=== PATIENT | male | born 1965 | race Caucasian/White ===

== ENCOUNTER 2018-04-25 23:52 | Emergency (ER) | END 2018-04-26 04:45 | disposition home or self-care (01) ==

== ENCOUNTER 2018-04-26 19:09 | Emergency (ER) | END 2018-04-26 20:43 | disposition home or self-care (01) ==

== ENCOUNTER 2019-04-06 03:34 | Inpatient (IN) | payer MEDICAID, OTHER ==
[~2019-04-06] VITALS: Ht 165.1 cm; Wt 70.0 kg
[2019-04-06] VITALS (11 sets, daily range): BP systolic 148–174; BP diastolic 88–100; PULSE 82–151; RESP 16–20; Ht 165.1 cm; Wt 70.0 kg
[~2019-04-06 03:34] MED LIST: ATOR-2 PO; BENA10TA4 PO; CHLO25CA9 PO; MTF1000T PO
[2019-04-06] MEDS ORDERED: MULTIVITAMINS 10 ML, THIAMINE 100 MG, FOLIC ACID 1 MG, MAGNESIUM SULFATE 2 GM in SOD CH... IV ONE (04:00)
[2019-04-06] MEDS ORDERED: ONDANSETRON 4 MG INJ IV PRN ×2 (04:00→05:30)
[2019-04-06] MEDS ORDERED: ACETAMINOPHEN 325 MG TAB PO PRN (04:00)
[2019-04-06] MEDS ORDERED: LEVETIRACETAM 1000 MG (PMX) 100 ML IVPB ONE (05:30)
[2019-04-06] MEDS ORDERED: LORAZEPAM 2 MG INJ IV PRN ×2 (05:30)
[2019-04-06] MEDS ORDERED: LORAZEPAM 2 MG INJ IV ONE ×2 (05:30)
[2019-04-06] MEDS ORDERED: NACL 0.9% 3 ML SYG IV SCH (05:30)
--- NOTE | 2019-04-06 05:41 | HP ---
Date/Time of Note Date/Time of Note DATE: 04/06/19 TIME: 05:29 Assessment/Plan VTE Prophylaxis SCD applied (from Nsg): Yes Pharmacological prophylaxis: NA/contraindicated Pharm contraindication: other (No anticoagulation for now until head CT is done) Assessment/Plan Assessment/Plan 1. Seizure: Patient just had a seizure shortly after admitted to telemetry unit -He was brought to the ER for hypoglycemia (27 on the field). Home medication listed only includes metformin for diabetes. After dextrose was given by EMS, blood sugar has been in the 400s and 300s range. We just did an Accu-Chek and blood glucose in the 300s. -He will be given Ativan as needed -Start Keppra -Banana bag alternating with IV fluid -Head CT -Frequent Accu-Cheks and neurochecks -Keep n.p.o. -Seizure precaution 2. Hypoglycemia: See #1 3. Type 2 diabetes: Patient on metformin at home -Check A1c -See above 4. Alcohol abuse: Monitor for withdrawal -Banana bag alternating with IV fluid -As needed Ativan -When patient more appropriate, Librium 5. Hypertension: IV antihypertensive as needed 6. Dyslipidemia: Hold statin for now 7. During the [employer], there was a splattering of blood and saliva that has probably has gotten into the eye of one of the nurses. We will check HIV and hep panel Result Diagram: 04/06/19 0338 04/06/19 0338 Results 24hrs Laboratory Tests Test 04/06/19 03:38 04/06/19 03:40 04/06/19 04:58 04/06/19 05:18 White Blood Count 7.0 # Red Blood Count 4.09 L Hemoglobin 12.1 L Hematocrit 36.0 L Mean Corpuscular 88.0 Volume Mean Corpuscular 29.6 Hemoglobin Mean Corpuscular 33.6 Hemoglobin Concent Red Cell 14.2 Distribution Width Platelet Count 57 #L Mean Platelet Volume 11.6 H Immature 0.400 Granulocytes % Neutrophils % 53.0 Lymphocytes % 33.7 Monocytes % 12.1 H Eosinophils % 0.1 Basophils % 0.7 Nucleated Red Blood 0.0 Cells % Immature 0.030 Granulocytes # Neutrophils # 3.7 Lymphocytes # 2.3 Monocytes # 0.8 Eosinophils # 0.0 Basophils # 0.1 Nucleated Red Blood 0.0 Cells # Sodium Level 134 L Potassium Level 3.5 Chloride Level 91 L Carbon Dioxide Level 19 L Anion Gap 24 H Blood Urea Nitrogen 13 Creatinine 0.55 L Est Glomerular > 60 Filtrat Rate mL/min Glucose Level 456 *H Calcium Level 9.7 Total Bilirubin 0.9 Direct Bilirubin 0.00 Indirect Bilirubin 0.9 Aspartate Amino 131 H Transf (AST/SGOT) Alanine 75 H Aminotransferase (AL T/SGPT) Alkaline Phosphatase 253 H Total Protein 8.6 H Albumin 4.8 Globulin 3.80 H Albumin/Globulin 1.26 Ratio Ethyl Alcohol Level < 10.0 H Bedside Glucose 417 *H 351 H 306 H HPI/ROS Admit Date/Time Admit Date/Time April 06, 2019 at 03:59 Hx of Present Illness Patient is a 53-year-old male with a history of hypertension, type 2 diabetes, dyslipidemia, alcohol abuse who was brought to the ER for hypoglycemia. On the field, blood glucose was 27 and was given dextrose. When he arrived to the ER, blood glucose in the 400s. Blood pressure 182/104. Patient has also been drinking. He has been admitted to the hospital and had multiple ER visits related to alcohol intoxication. Shortly after patient was admitted to telemetry unit, and [employer] was called for seizure. When I got to the room, his seizure has already stopped (lasted about 30 seconds). Currently patient is in a postictal state. While he was having a seizure, he pulled out his right forearm peripheral IV line which resulted in some bleeding. Because of his mentation, I am not able to gather additional information. PMH/Family/Social Past Medical History Medical History: diabetes, high cholesterol, hypertension Medications Current Medications Multivitamins 10 ml/Thiamine HCl 100 mg/Folic Acid 1 mg/Magnesium Sulfate 2 gm/ Sodium Chloride 1,000 ml @ 500 mls/hr Q2H ONCE IV Last administered on at 04:37; Admin Dose 500 MLS/HR; Start 04/06/19 at 04:00; Stop 04/06/19 at 05:59 Levetiracetam 100 ml @ 400 mls/hr ONCE ONCE IVPB ; Start 04/06/19 at 05:30; Stop 04/06/19 at 05:44 Lorazepam (Ativan) 1 mg ONCE ONCE IV Last administered on 04/06/19at 05:26; Admin Dose 1 MG; Start 04/06/19 at 05:30; Stop 04/06/19 at 05:31 Coded Allergies: No Known Allergy (Unverified , 04/26/18) Past Surgical History Past Surgical Hx: other (See HPI) Family History Significant Family History: diabetes Social History Alcohol Use: heavy Smoking Status: Unknown if ever smoked Drug Use: other (Unknown) Exam/Review of Systems Vital Signs Vitals Vital Signs Date Temp Pulse Resp B/P (MAP) Pulse Ox O2 O2 Flow FiO2 Time Delivery Rate 04/06/19 135 05:14 04/06/19 14 161/101 99 Room Air 04:30 (121) 04/06/19 98.4 03:35 Exam Constitutional: other (Patient altered (he just had a seizure). ) Head: normocephalic, atraumatic Eyes: PERRL Respiratory: clear to auscultation Cardiovascular: other (Tachycardic with regular rhythm) Gastrointestinal: soft Extremities: normal pulses LYNDA PIKE MD April 06, 2019 05:39
[2019-04-06] MEDS: SOD CHLORIDE 0.9% 1,000 ML IV SCH ×2 (05:44→14:37)
[2019-04-06] MEDS ORDERED: GLUCOSE GEL 15 GRAM TUBE PO PRN ×2 (06:00)
[2019-04-06] MEDS ORDERED: GLUCAGON 1 MG INJ IM PRN (06:00)
[2019-04-06] MEDS ORDERED: DEXTROSE 50% 50 ML SYRINGE IV PRN ×2 (06:00)
[2019-04-06] MEDS ORDERED: GLUCOSE GEL 15 GRAM TUBE BUCCAL PRN (06:00)
--- NOTE | 2019-04-06 06:35 | ERD ---
ER Documentation Chief Complaint Chief Complaint R89. HYPOGLYCEMIA FROM HOME. INS HPI This is a 53-year-old male with a past medical history of hypertension, hyperlipidemia, diabetes reportedly on metformin and glipizide, significant alcohol abuse who is presenting for hypoglycemia, possible seizure event and transient altered mentation. The patient was confused at his home. His family called an ambulance. Upon convict guard arrival, the patient's blood sugar was found to be in the 20s. The patient was also noted to have oral trauma, and there is suspicion that the patient may have had a seizure prior to convict guard arrival. It is unclear if the family witnessed a seizure or not. The patient was given D10 in route to the hospital with significant improvement of his mentation. The patient is currently alert and oriented x3. He does not recall all the events of today. The patient reports feeling a little fatigued and s haky. Otherwise, he does not endorse any significant complaints. He does report not drinking alcohol over the last few days. The patient denies fever or chills. The patient has had no headache or vision changes. The patient does not endorse neck or back pain. The patient denies lightheadedness or dizziness. The patient has had no chest pain or trouble breathing. The patient denies nausea or vomiting. The patient denies abdominal pain. The patient denies changes to bowel movements or urination. The patient has had no focal deficits. The patient has had no weakness or numbness or tingling to the face or extremities. ROS All systems reviewed and are negative except as per history of present illness. Medications Home Meds Active Scripts Chlordiazepoxide* (Chlordiazepoxide*) 25 Mg Capsule, 25 MG PO BID PRN for CONTROL WITHDRAWAL SYMPTOMS, #10 CAP Prov:BATOOL RAMOS MD 04/26/18 Reported Medications Atorvastatin* (Atorvastatin*) 80 Mg Tablet, 80 MG PO QHS, #30 TAB 04/26/18 Benazepril Hcl* (Benazepril Hcl*) 10 Mg Tablet, 10 MG PO DAILY, #30 TAB 04/26/18 Metformin* (Glucophage*) 1,000 Mg Tablet, 1000 MG PO WITH BREAKFAST, #30 TAB 04/26/18 Allergies Allergies: Coded Allergies: No Known Allergy (Unverified , 04/26/18) PMhx/Soc History of Surgery: No Anesthesia Reaction: No Hx Neurological Disorder: No Hx Respiratory Disorders: No Hx Cardiac Disorders: Yes (Hypertension, hyperlipidemia, diabetes) Hx Psychiatric Problems: No Hx Miscellaneous Medical Probl: No Hx Alcohol Use: Yes (3 beers a day ) Hx Substance Use: No Hx Tobacco Use: Yes Smoking Status: Unknown if ever smoked FmHx Family History: diabetes Physical Exam Vitals Vital Signs Date Temp Pulse Resp B/P (MAP) Pulse Ox O2 O2 Flow FiO2 Time Delivery Rate 04/06/19 101 20 182/104 98 Room Air 03:45 (130) 04/06/19 98.4 72 15 182/104 100 03:35 (130) Physical Exam Const: No apparent distress, well-developed, well-nourished Head: Normocephalic, Atraumatic Eyes: Normal Conjunctiva. Extraocular movements intact. Pupils equal, round and reactive to light ENT: Normal External Ears, Nose and Mouth. Abrasion to the anterior left lateral tongue. Neck: Full range of motion. No meningismus. Resp: Clear to auscultation bilaterally, No wheezes, rales or rhonchi Cardio: Regular rate and rhythm. No murmurs, rubs or gallops Abd: Soft, non tender, non distended. Normal bowel sounds Skin: No petechiae or rashes Back: No midline tenderness. No CVA tenderness Ext: No cyanosis, or edema Neur: Awake and alert, oriented 4. Cranial nerves intact. No facial droop. Normal strength, sensation and coordination. Tremulous Psych: Anxious Result Diagram: 04/06/19 0338 04/06/19 0338 Results 24 hrs Laboratory Tests Test 04/06/19 03:38 04/06/19 03:40 White Blood Count 7.0 10^3/ul Red Blood Count 4.09 10^6/ul Hemoglobin 12.1 g/dl Hematocrit 36.0 % Mean Corpuscular Volume 88.0 fl Mean Corpuscular Hemoglobin 29.6 pg Mean Corpuscular Hemoglobin Concent 33.6 g/dl Red Cell Distribution Width 14.2 % Platelet Count 57 10^3/UL Mean Platelet Volume 11.6 fl Immature Granulocytes % 0.400 % Neutrophils % 53.0 % Lymphocytes % 33.7 % Monocytes % 12.1 % Eosinophils % 0.1 % Basophils % 0.7 % Nucleated Red Blood Cells % 0.0 /100WBC Immature Granulocytes # 0.030 10^3/ul Neutrophils # 3.7 10^3/ul Lymphocytes # 2.3 10^3/ul Monocytes # 0.8 10^3/ul Eosinophils # 0.0 10^3/ul Basophils # 0.1 10^3/ul Nucleated Red Blood Cells # 0.0 10^3/ul Sodium Level 134 mmol/L Potassium Level 3.5 mmol/L Chloride Level 91 mmol/L Carbon Dioxide Level 19 mmol/L Anion Gap 24 Blood Urea Nitrogen 13 mg/dl Creatinine 0.55 mg/dl Est Glomerular Filtrat Rate mL/min > 60 mL/min Glucose Level 456 mg/dl Calcium Level 9.7 mg/dl Total Bilirubin 0.9 mg/dl Direct Bilirubin 0.00 mg/dl Indirect Bilirubin 0.9 mg/dl Aspartate Amino Transf (AST/SGOT) 131 IU/L Alanine Aminotransferase (ALT/SGPT) 75 IU/L Alkaline Phosphatase 253 IU/L Total Protein 8.6 g/dl Albumin 4.8 g/dl Globulin 3.80 g/dl Albumin/Globulin Ratio 1.26 Ethyl Alcohol Level < 10.0 mg/dl Bedside Glucose 417 mg/dL Procedures/MDM MDM The patient's presentation warrants further investigation. Previous medical records, if available, were reviewed. LABS The patient's laboratory testing was obtained and reviewed. No emergent treatment was required unless described below. CBC: Mild normocytic anemia, not emergent. Significant thrombocytopenia, likely from alcoholic liver disease. No E/o systemic infection Chemistry: Mild hyponatremia, nonemergent. Hyperglycemia now after receiving D10. Anion gap metabolic acidosis, likely from a seizure event, low clinical suspicion for DKA. Transaminitis in a pattern consistent with alcoholic liver disease. No E/o severe alkalosis or renal failure Urine: No E/o acute infection or hematuria Tox: No E/o alcohol abuse. TREATMENT/DISPOSITION The patient presents for multiple complaints. The patient's initial presentation was concerning for significant hypoglycemia and a seizure event. The patient does have diabetes and reports being on metformin and glipizide. If he is in fact on glipizide, this could lead to refractory hypoglycemia, and I do feel that the patient requires further assessment and management in the hospital. The patient already received D10 prior to arrival. His sugar is now elevated. I do not believe he requires a dextrose infusion at this time. With respect to the patient's seizure, this could be related to his hypoglycemic event. The patient also has a history of severe alcohol abuse and reports not drinking over the last several days. There are some clinical findings concerning for possible alcoholic withdrawal, and there is a possibility of an alcohol withdrawal seizure. The patient was started on a banana bag in the emergency department. The patient did not have any subsequent episodes in the emergency department. The patient seemed to be resting comfortably. I did not feel that he required any benzodiazepine or antiepileptic medications in the ER. There is sequelae of liver disease, including thrombocytopenia, hyponatremia, transaminitis, which may be further assessed in the hospital. I do not see evidence of obstructive cholestatic disease. There are no electrolyte emergencies at this time. ADMISSION At this time, I feel that the patient requires admission for further evaluation and management. The patient will be admitted to panel in accordance with the patient's insurance. The patient was accepted by Dr. Dominguez at 3:58 AM on April 06, 2019. Disclaimer: Inadvertent spelling and grammatical errors are likely due to EHR/dictation software use and do not reflect on the overall quality of patient care. Note that the electronic time recorded on this note does not necessarily reflect the actual time of the patient encounter. Departure Diagnosis: Primary Impression: Hypoglycemia Additional Impressions: Seizure disorder Alcohol withdrawal Complication of substance-induced condition: with unspecified complication Qualified Codes: F10.239 - Alcohol dependence with withdrawal, unspecified Alcoholic liver disease Normocytic anemia Thrombocytopenia Hyponatremia High anion gap metabolic acidosis Transaminitis Condition: Serious ANNIE FAULKNER MD April 06, 2019 06:26
[2019-04-06] MEDS ORDERED: ACETAMINOPHEN 500 MG TAB PO PRN (09:00)
[2019-04-06] MEDS ORDERED: INSULIN ASPART [NOVOLOG] 3 ML PEN SC SCH (09:00)
[2019-04-06] MEDS: HEPARIN 5,000 UNIT/1 ML VIAL SC SCH ×2 (10:24→20:11)
--- NOTE | 2019-04-06 11:31 | PN ---
Date/Time of Note Date/Time of Note DATE: 04/06/19 TIME: 11:29 Assessment/Plan VTE Prophylaxis SCD applied (from Nsg): Yes Pharmacological prophylaxis: heparin Lines/Catheters IV Catheter Type (from Nrsg): Peripheral IV Assessment/Plan Hospital Course SUBJECTIVE: Patient remains on bilateral soft wrist restraints. Remains tremulous. OBJECTIVE: Physical Exam General: Adequately build 53 year-old male lying in bed in no apparent distress. HEENT: Normocephalic, atraumatic. Eyes: Anicteric sclerae, conjunctivae clear. ENT: Nasal septum midline, oral mucosa moist. Neck supple, no JVD noticed. Respiratory: Bilaterally clear breath sounds. No use of accessory muscles of respiration. No adventitious breath sounds. Cardiovascular: S1, S2 heard. Regular rate and rhythm. Abdomen: Soft, nontender, and nondistended. Bowel sounds positive in all 4 quadrants. Genitourinary: Deferred. Extremities: No cyanosis, no clubbing, no edema. Peripheral pulses palpable. Neurologic: The patient is awake, alert, and oriented. Skin: Normal skin turgor. No skin rashes. Labs & Vitals per chart ASSESSMENT & PLAN 52-year-old male with comorbidities including diabetes mellitus type 2, hypertension, dyslipidemia, and alcohol abuse who was brought in by paramedics from home for hypoglycemia. Patient was admitted to telemetry floor and the patient had a seizure in the telemetry floor. 1. Acute encephalopathy. -Most probably secondary to underlying hypoglycemia. -Currently the sugars are elevated. -Pending brain CT scan. 2. Seizures. -Most probably alcohol withdrawal seizure. -Pending brain CT scan. -Continue seizure precautions. -PRN Ativan for any seizures. 3. Alcohol withdrawal. -Continue tapering dose Librium. -Continue PRN IV Ativan. 4. Diabetes mellitus type 2. -Start the patient on sliding scale insulin along with pre-meal insulin and basal insulin. -Obtain hemoglobin A1c. 5. Transaminitis without hyperbilirubinemia. -Most probably secondary to underlying alcoholism. -Hepatitis panel negative. -Hold statins. 6. Dyslipidemia. -Low-cholesterol diet. -Hold statins because of underlying transaminitis. 7. Hypertension. -Resume antihypertensives. 8. Fluids, electrolytes, and nutrition. -Carbohydrate controlled diet. 9. DVT prophylaxis. -SQ heparin. 10. Plan. -Continue tapering dose of Librium -Monitor for any seizures. -Await brain CT scan. The patient was seen in collaboration with Dr. Gil. Result Diagram: 04/06/19 0338 04/06/19 0338 Results 24hrs Laboratory Tests Test 04/06/19 03:38 04/06/19 03:40 04/06/19 04:45 04/06/19 04:58 White Blood Count 7.0 # Red Blood Count 4.09 L Hemoglobin 12.1 L Hematocrit 36.0 L Mean Corpuscular 88.0 Volume Mean Corpuscular 29.6 Hemoglobin Mean Corpuscular 33.6 Hemoglobin Concent Red Cell 14.2 Distribution Width Platelet Count 57 #L Mean Platelet Volume 11.6 H Immature 0.400 Granulocytes % Neutrophils % 53.0 Lymphocytes % 33.7 Monocytes % 12.1 H Eosinophils % 0.1 Basophils % 0.7 Nucleated Red Blood 0.0 Cells % Immature 0.030 Granulocytes # Neutrophils # 3.7 Lymphocytes # 2.3 Monocytes # 0.8 Eosinophils # 0.0 Basophils # 0.1 Nucleated Red Blood 0.0 Cells # Sodium Level 134 L Potassium Level 3.5 Chloride Level 91 L Carbon Dioxide Level 19 L Anion Gap 24 H Blood Urea Nitrogen 13 Creatinine 0.55 L Est Glomerular > 60 Filtrat Rate mL/min Glucose Level 456 *H Calcium Level 9.7 Total Bilirubin 0.9 Direct Bilirubin 0.00 Indirect Bilirubin 0.9 Aspartate Amino 131 H Transf (AST/SGOT) Alanine 75 H Aminotransferase (AL T/SGPT) Alkaline Phosphatase 253 H Total Protein 8.6 H Albumin 4.8 Globulin 3.80 H Albumin/Globulin 1.26 Ratio Ethyl Alcohol Level < 10.0 H Bedside Glucose 417 *H 351 H Urine Color STRAW Urine Clarity CLEAR Urine pH 6.0 Urine Specific 1.020 [place] Urine Ketones 1+ H Urine Nitrite NEGATIVE Urine Bilirubin NEGATIVE Urine Urobilinogen NEGATIVE Urine Leukocyte NEGATIVE Esterase Urine Microscopic 3 RBC Urine Microscopic 1 WBC Urine Hemoglobin 1+ H Urine Glucose 3+ H Urine Total Protein 2+ H Test 04/06/19 05:18 04/06/19 05:52 04/06/19 10:16 Bedside Glucose 306 H 227 H Hepatitis B Surface NEGATIVE Antigen Hepatitis B Surface NEGATIVE Antibody Hepatitis C Antibody NEGATIVE HIV (1&2) Antibody NEGATIVE Exam/Review of Systems Exam Vitals Vital Signs Date Temp Pulse Resp B/P (MAP) Pulse Ox O2 O2 Flow FiO2 Time Delivery Rate 04/06/19 99.6 10:14 04/06/19 88 18 148/94 100 Nasal 10:10 (112) Cannula 04/06/19 2.0 05:56 Results Results 24hrs Laboratory Tests Test 04/06/19 03:38 04/06/19 03:40 04/06/19 04:45 04/06/19 04:58 White Blood Count 7.0 # Red Blood Count 4.09 L Hemoglobin 12.1 L Hematocrit 36.0 L Mean Corpuscular 88.0 Volume Mean Corpuscular 29.6 Hemoglobin Mean Corpuscular 33.6 Hemoglobin Concent Red Cell 14.2 Distribution Width Platelet Count 57 #L Mean Platelet Volume 11.6 H Immature 0.400 Granulocytes % Neutrophils % 53.0 Lymphocytes % 33.7 Monocytes % 12.1 H Eosinophils % 0.1 Basophils % 0.7 Nucleated Red Blood 0.0 Cells % Immature 0.030 Granulocytes # Neutrophils # 3.7 Lymphocytes # 2.3 Monocytes # 0.8 Eosinophils # 0.0 Basophils # 0.1 Nucleated Red Blood 0.0 Cells # Sodium Level 134 L Potassium Level 3.5 Chloride Level 91 L Carbon Dioxide Level 19 L Anion Gap 24 H Blood Urea Nitrogen 13 Creatinine 0.55 L Est Glomerular > 60 Filtrat Rate mL/min Glucose Level 456 *H Calcium Level 9.7 Total Bilirubin 0.9 Direct Bilirubin 0.00 Indirect Bilirubin 0.9 Aspartate Amino 131 H Transf (AST/SGOT) Alanine 75 H Aminotransferase (AL T/SGPT) Alkaline Phosphatase 253 H Total Protein 8.6 H Albumin 4.8 Globulin 3.80 H Albumin/Globulin 1.26 Ratio Ethyl Alcohol Level < 10.0 H Bedside Glucose 417 *H 351 H Urine Color STRAW Urine Clarity CLEAR Urine pH 6.0 Urine Specific 1.020 [place] Urine Ketones 1+ H Urine Nitrite NEGATIVE Urine Bilirubin NEGATIVE Urine Urobilinogen NEGATIVE Urine Leukocyte NEGATIVE Esterase Urine Microscopic 3 RBC Urine Microscopic 1 WBC Urine Hemoglobin 1+ H Urine Glucose 3+ H Urine Total Protein 2+ H Test 04/06/19 05:18 04/06/19 05:52 04/06/19 10:16 Bedside Glucose 306 H 227 H Hepatitis B Surface NEGATIVE Antigen Hepatitis B Surface NEGATIVE Antibody Hepatitis C Antibody NEGATIVE HIV (1&2) Antibody NEGATIVE Medications Medication Current Medications Sodium Chloride 1,000 ml @ 125 mls/hr Q8H IV Last administered on 04/06/19at 05:44; Admin Dose 125 MLS/HR; Start 04/06/19 at 05:25 IV Flush (NS 3 ml) 3 ml PER PROTOCOL IV ; Start 04/06/19 at 05:30 Lorazepam (Ativan) 2 mg Q10M PRN IV seizure; Start 04/06/19 at 05:30 Ondansetron HCl (Zofran Inj) 4 mg Q6H PRN IV NAUSEA/VOMITING; Start 04/06/19 at 05:30 Heparin Sodium (Porcine) (Heparin (5000 Units/1ml)) 5,000 unit Q12 SC Last administered on 04/06/19at 10:24; Admin Dose 5,000 UNIT; Start 04/06/19 at 09:00 Diagnostic Test (Pha) (Accu-Chek) 1 ea 02 XX ; Start 04/07/19 at 02:00 Insulin Aspart (Novolog Insulin Pen) NOVOLOG *MILD* ALGORI... Q4 SC Last administered on 04/06/19at 10:24; Admin Dose 3 UNIT; Start 04/06/19 at 09:00 Lorazepam (Ativan) 1 mg Q6H PRN IV anxiety; Start 04/06/19 at 05:30 Multivitamins 10 ml/Thiamine HCl 100 mg/Folic Acid 1 mg/Sodium Chloride 1,011.2 ml @ 125 mls/ hr DAILY@09 IVPB ; Start 04/07/19 at 09:00; Stop 04/10/19 at 17:06 Miscellaneous Information 1 ea NOTE XX ; Start 04/06/19 at 06:00 Glucose (Glutose) 15 gm Q15M PRN PO DECREASED GLUCOSE; Start 04/06/19 at 06:00 Glucose (Glutose) 22.5 gm Q15M PRN PO DECREASED GLUCOSE; Start 04/06/19 at 06:00 Dextrose (D50w Syringe) 25 ml Q15M PRN IV DECREASED GLUCOSE; Start 04/06/19 at 06:00 Dextrose (D50w Syringe) 50 ml Q15M PRN IV DECREASED GLUCOSE; Start 04/06/19 at 06:00 Glucagon (Glucagen) 1 mg Q15M PRN IM DECREASED GLUCOSE; Start 04/06/19 at 06:00 Glucose (Glutose) 15 gm Q15M PRN BUCCAL DECREASED GLUCOSE; Start 04/06/19 at 06:00 Acetaminophen (Tylenol Tab) 500 mg Q6H PRN PO MILD PAIN(1-3)OR ELEVATED TEMP Last administered on 04/06/19at 10:14; Admin Dose 500 MG; Start 04/06/19 at 09:00 Hydralazine HCl (Apresoline) 10 mg Q6H PRN IV SBP>160; Start 04/06/19 at 09:00 Benazepril HCl (Lotensin) 10 mg DAILY PO ; Start 04/07/19 at 09:00 Chlordiazepoxide (Librium) 25 mg TID PO ; Start 04/06/19 at 13:00 AIME DUARTE NP April 06, 2019 11:31
[2019-04-06] MEDS: INSULIN ASPART [NOVOLOG] 3 ML PEN SC SCH ×5 (12:05→20:16)
[2019-04-06] MEDS: CHLORDIAZEPOXIDE 25 MG CAP PO SCH ×2 (12:10→20:10)
[2019-04-06] MEDS: INSULIN GLARGINE [LANTus] (100 UNITS/ML) SYG SC SCH (20:08)
[2019-04-07] VITALS (17 sets, daily range): BP systolic 106–169; BP diastolic 65–114; PULSE 81–140; RESP 18–21
[2019-04-07] MEDS: SOD CHLORIDE 0.9% 1,000 ML IV SCH ×4 (00:14→13:25)
[2019-04-07] MEDS: ACCU-CHEK XX SCH (01:50)
[2019-04-07] MEDS ORDERED: LORAZEPAM 2 MG INJ IV PRN (03:30)
[2019-04-07] MEDS: hydrALAzine 20 MG INJ IV PRN (05:08)
[2019-04-07] MEDS ORDERED: POTASSIUM CHLORIDE (SR) 20 MEQ TAB PO ONE (07:00)
[2019-04-07] MEDS: LORAZEPAM 2 MG INJ IV PRN ×5 (07:58→22:20)
[2019-04-07] MEDS ORDERED: HALOPERIDOL 5 MG INJ IV ONE (08:30)
[2019-04-07] MEDS ORDERED: METOPROLOL 5 MG INJ IV PRN (08:30)
[2019-04-07] MEDS ORDERED: MAGNESIUM SULFATE 4 GM/100 ML 100 ML IVPB ONE (08:30)
[2019-04-07] MEDS: CHLORDIAZEPOXIDE 25 MG CAP PO SCH ×3 (08:50→20:17)
[2019-04-07] MEDS: HEPARIN 5,000 UNIT/1 ML VIAL SC SCH ×2 (08:51→20:25)
[2019-04-07] MEDS: INSULIN ASPART [NOVOLOG] 3 ML PEN SC SCH ×7 (08:52→20:30)
[2019-04-07] MEDS: BENAZEPRIL 10 MG TAB PO SCH (08:53)
[2019-04-07] MEDS ORDERED: MAGNESIUM SULFATE 3 GM in SOD CHLORIDE 0.9% 100 ML IVPB ONE (09:00)
--- NOTE | 2019-04-07 09:48 | PN ---
Date/Time of Note Date/Time of Note DATE: 04/07/19 TIME: 09:44 Assessment/Plan VTE Prophylaxis Risk score (from Ns)>0 risk: 3 SCD applied (from Ns): Yes Pharmacological prophylaxis: heparin Lines/Catheters IV [facility]ter [facility] (from [facility]): Peripheral IV Urinary Cath still in place: No Assessment/Plan Hospital Course SUBJECTIVE: Patient remains on bilateral soft wrist restraints. Remains tremulous and confused. OBJECTIVE: Physical Exam General: Adequately build 53 year-old male lying in bed in no apparent distress, very restless. HEENT: Normocephalic, atraumatic. Eyes: Anicteric sclerae, conjunctivae clear. ENT: Nasal septum midline, oral mucosa moist. Neck supple, no JVD noticed. Respiratory: Bilaterally clear breath sounds. No use of accessory muscles of respiration. No adventitious breath sounds. Cardiovascular: S1, S2 heard. Regular rate and rhythm. Abdomen: Soft, nontender, and nondistended. Bowel sounds positive in all 4 quadrants. Genitourinary: Deferred. Extremities: No cyanosis, no clubbing, no edema. Peripheral pulses palpable. Neurologic: The patient is awake. Confused. Skin: Normal skin turgor. No skin rashes. Labs & Vitals per chart ASSESSMENT & PLAN 52-year-old male with comorbidities including diabetes mellitus type 2, hypertension, dyslipidemia, and alcohol abuse who was brought in by paramedics from home for hypoglycemia. Patient was admitted to telemetry floor and the patient had a seizure in the telemetry floor. 1. Acute encephalopathy. -Most probably secondary to underlying hypoglycemia. -Currently the sugars are elevated. -Brain CT scan negative. 2. Seizures. -Most probably alcohol withdrawal seizure. -Brain CT scan negative. -Continue seizure precautions. -PRN Ativan for any seizures. 3. Alcohol withdrawal. -Continue tapering dose Librium. -Continue PRN IV Ativan. 4. Diabetes mellitus type 2. -Continue the patient on sliding scale insulin along with pre-meal insulin and basal insulin. -Hemoglobin A1c 12.1. 5. Transaminitis without hyperbilirubinemia. -Most probably secondary to underlying alcoholism. -Hepatitis panel negative. -Hold statins. 6. Dyslipidemia. -Low-cholesterol diet. -Hold statins because of underlying transaminitis. -Start omega-3 fatty acids. 7. Hypertension. -Continue antihypertensives. 8. Fluids, electrolytes, and nutrition. -Carbohydrate controlled diet. 9. DVT prophylaxis. -SQ heparin. 10. Plan. -Continue tapering dose of Librium -Monitor for any seizures. -Replete electrolytes. -Add beta blockers. -Await clinical improvement. The patient was seen in collaboration with Dr. Gil. Result Diagram: 04/07/1912 04/07/19 0512 Results 24hrs Laboratory Tests Test 04/06/19 10:16 04/06/19 12:01 04/06/19 12:17 04/06/19 17:37 Bedside Glucose 227 H 158 227 H Sodium Level 135 Potassium Level 3.1 L Chloride Level 98 Carbon Dioxide Level 28 Anion Gap 9 # Blood Urea Nitrogen 13 Creatinine 0.51 L Est Glomerular > 60 Filtrat Rate mL/min Glucose Level 166 # Calcium Level 8.7 Magnesium Level 1.1 L Total Bilirubin 0.8 Direct Bilirubin 0.00 Indirect Bilirubin 0.8 Aspartate Amino 111 H Transf (AST/SGOT) Alanine 65 Aminotransferase (AL T/SGPT) Alkaline Phosphatase 178 H Total Protein 7.7 Albumin 4.1 Globulin 3.60 H Albumin/Globulin 1.13 Ratio Test 04/06/19 20:01 04/07/19 01:49 04/07/19 05:12 04/07/19 08:08 Bedside Glucose 196 213 172 White Blood Count 5.9 Red Blood Count 3.94 L Hemoglobin 11.8 L Hematocrit 33.6 L Mean Corpuscular 85.3 Volume Mean Corpuscular 29.9 Hemoglobin Mean Corpuscular 35.1 Hemoglobin Concent Red Cell 13.7 Distribution Width Platelet Count 67 L Mean Platelet Volume 10.8 H Immature 0.700 H Granulocytes % Neutrophils % 59.0 Lymphocytes % 24.7 Monocytes % 13.6 H Eosinophils % 1.0 Basophils % 1.0 Nucleated Red Blood 0.0 Cells % Immature 0.040 H Granulocytes # Neutrophils # 3.5 Lymphocytes # 1.5 Monocytes # 0.8 Eosinophils # 0.1 Basophils # 0.1 Nucleated Red Blood 0.0 Cells # Sodium Level 136 Potassium Level 2.8 *L Chloride Level 100 Carbon Dioxide Level 27 Anion Gap 9 Blood Urea Nitrogen 11 Creatinine 0.50 L Est Glomerular > 60 Filtrat Rate mL/min Glucose Level 142 Hemoglobin A1c 12.1 H Calcium Level 8.4 Magnesium Level 1.0 L Total Bilirubin 0.9 Direct Bilirubin 0.00 Indirect Bilirubin 0.9 Aspartate Amino 124 H Transf (AST/SGOT) Alanine 66 Aminotransferase (AL T/SGPT) Alkaline Phosphatase 151 H Total Protein 7.5 Albumin 4.1 Globulin 3.40 H Albumin/Globulin 1.20 Ratio Triglycerides Level 110 Cholesterol Level 308 H LDL Cholesterol, 134 Calculated HDL Cholesterol 152 H Cholesterol/HDL 2.0 Ratio Exam/Review of Systems Exam Vitals Vital Signs Date Temp Pulse Resp B/P (MAP) Pulse Ox O2 O2 Flow FiO2 Time Delivery Rate 04/07/19 127 08:17 04/07/19 98.6 20 151/99 100 Nasal 07:41 (116) Cannula 04/07/19 3.0 07:27 Intake and Output 04/06/19 04/06/19 04/07/19 1515:00 23:00 07:00 IntakeIntake Total 900 ml 520 ml OutputOutput Total 2600 ml 800 ml BalanceBalance -1700 ml -280 ml Results Results 24hrs Laboratory Tests Test 04/06/19 10:16 04/06/19 12:01 04/06/19 12:17 04/06/19 17:37 Bedside Glucose 227 H 158 227 H Sodium Level 135 Potassium Level 3.1 L Chloride Level 98 Carbon Dioxide Level 28 Anion Gap 9 # Blood Urea Nitrogen 13 Creatinine 0.51 L Est Glomerular > 60 Filtrat Rate mL/min Glucose Level 166 # Calcium Level 8.7 Magnesium Level 1.1 L Total Bilirubin 0.8 Direct Bilirubin 0.00 Indirect Bilirubin 0.8 Aspartate Amino 111 H Transf (AST/SGOT) Alanine 65 Aminotransferase (AL T/SGPT) Alkaline Phosphatase 178 H Total Protein 7.7 Albumin 4.1 Globulin 3.60 H Albumin/Globulin 1.13 Ratio Test 04/06/19 20:01 04/07/19 01:49 04/07/19 05:12 04/07/19 08:08 Bedside Glucose 196 213 172 White Blood Count 5.9 Red Blood Count 3.94 L Hemoglobin 11.8 L Hematocrit 33.6 L Mean Corpuscular 85.3 Volume Mean Corpuscular 29.9 Hemoglobin Mean Corpuscular 35.1 Hemoglobin Concent Red Cell 13.7 Distribution Width Platelet Count 67 L Mean Platelet Volume 10.8 H Immature 0.700 H Granulocytes % Neutrophils % 59.0 Lymphocytes % 24.7 Monocytes % 13.6 H Eosinophils % 1.0 Basophils % 1.0 Nucleated Red Blood 0.0 Cells % Immature 0.040 H Granulocytes # Neutrophils # 3.5 Lymphocytes # 1.5 Monocytes # 0.8 Eosinophils # 0.1 Basophils # 0.1 Nucleated Red Blood 0.0 Cells # Sodium Level 136 Potassium Level 2.8 *L Chloride Level 100 Carbon Dioxide Level 27 Anion Gap 9 Blood Urea Nitrogen 11 Creatinine 0.50 L Est Glomerular > 60 Filtrat Rate mL/min Glucose Level 142 Hemoglobin A1c 12.1 H Calcium Level 8.4 Magnesium Level 1.0 L Total Bilirubin 0.9 Direct Bilirubin 0.00 Indirect Bilirubin 0.9 Aspartate Amino 124 H Transf (AST/SGOT) Alanine 66 Aminotransferase (AL T/SGPT) Alkaline Phosphatase 151 H Total Protein 7.5 Albumin 4.1 Globulin 3.40 H Albumin/Globulin 1.20 Ratio Triglycerides Level 110 Cholesterol Level 308 H LDL Cholesterol, 134 Calculated HDL Cholesterol 152 H Cholesterol/HDL 2.0 Ratio Medications Medication Current Medications Sodium Chloride 1,000 ml @ 125 mls/hr Q8H IV Last administered on 04/07/19at 00:14; Admin Dose 125 MLS/HR; Start 04/06/19 at 05:25 IV Flush (NS 3 ml) 3 ml PER PROTOCOL IV ; Start 04/06/19 at 05:30 Lorazepam (Ativan) 2 mg Q10M PRN IV seizure Last administered on 04/07/19at 03:19; Admin Dose 2 MG; Start 04/06/19 at 05:30 Ondansetron HCl (Zofran Inj) 4 mg Q6H PRN IV NAUSEA/VOMITING; Start 04/06/19 at 05:30 Heparin Sodium (Porcine) (Heparin (5000 Units/1ml)) 5,000 unit Q12 SC Last administered on 04/07/19at 08:51; Admin Dose 5,000 UNIT; Start 04/06/19 at 09:00 Diagnostic Test (Pha) (Accu-Chek) 1 ea 02 XX Last administered on 04/07/19at 01:50; Admin Dose 1 EA; Start 04/07/19 at 02:00 Multivitamins 10 ml/Thiamine HCl 100 mg/Folic Acid 1 mg/Sodium Chloride 1,011.2 ml @ 125 mls/ hr DAILY@09 IVPB ; Start 04/07/19 at 09:00; Stop 04/10/19 at 17:06 Miscellaneous Information 1 ea NOTE XX ; Start 04/06/19 at 06:00 Glucose (Glutose) 15 gm Q15M PRN PO DECREASED GLUCOSE; Start 04/06/19 at 06:00 Glucose (Glutose) 22.5 gm Q15M PRN PO DECREASED GLUCOSE; Start 04/06/19 at 06:00 Dextrose (D50w Syringe) 25 ml Q15M PRN IV DECREASED GLUCOSE; Start 04/06/19 at 06:00 Dextrose (D50w Syringe) 50 ml Q15M PRN IV DECREASED GLUCOSE; Start 04/06/19 at 06:00 Glucagon (Glucagen) 1 mg Q15M PRN IM DECREASED GLUCOSE; Start 04/06/19 at 06:00 Glucose (Glutose) 15 gm Q15M PRN BUCCAL DECREASED GLUCOSE; Start 04/06/19 at 06:00 Acetaminophen (Tylenol Tab) 500 mg Q6H PRN PO MILD PAIN(1-3)OR ELEVATED TEMP Last administered on 04/06/19at 10:14; Admin Dose 500 MG; Start 04/06/19 at 09:00 Hydralazine HCl (Apresoline) 10 mg Q6H PRN IV SBP>160 Last administered on at 05:08; Admin Dose 10 MG; Start 04/06/19 at 09:00 Benazepril HCl (Lotensin) 10 mg DAILY PO Last administered on 04/07/19at 08:53; Admin Dose 10 MG; Start 04/07/19 at 09:00 Chlordiazepoxide (Librium) 25 mg TID PO Last administered on 04/07/19at 08:50; Admin Dose 25 MG; Start 04/06/19 at 13:00 Insulin Glargine (Lantus) 11 units DAILY@2000 SC Last administered on 04/06/19at 20:08; Admin Dose 11 UNITS; Start 04/06/19 at 20:00 Insulin Aspart (Novolog Insulin Pen) 4 unit WITH MEALS SC Last administered on 04/07/19at 08:52; Admin Dose 4 UNIT; Start 04/06/19 at 12:00 Insulin Aspart (Novolog Insulin Pen) NOVOLOG *MILD* ALGORITHM WITH MEALS BEDTIME SC Last administered on 04/07/19at 08:53; Admin Dose 1 UNIT; Start 04/06/19 at 12:00 Lorazepam (Ativan) 1 mg Q2H PRN IV anxiety; Start 04/07/19 at 03:30 Lorazepam (Ativan) 2 mg Q2H PRN IV SEVERE AGITATION Last administered on 04/07/19at 07:58; Admin Dose 2 MG; Start 04/07/19 at 03:30 Magnesium Sulfate 3 gm/Sodium Chloride 106 ml @ 35.333 mls/ hr ONCE ONCE IVPB ; Start 04/07/19 at 09:00; Stop 04/07/19 at 11:59 Metoprolol Tartrate (Lopressor) 2.5 mg Q6H PRN IV HR>130; Start 04/07/19 at 08:30 AIME DUARTE NP April 07, 2019 09:48
[2019-04-07] MEDS: METOPROLOL 25 MG TAB PO SCH ×2 (10:14→20:18)
[2019-04-07] MEDS ORDERED: LORAZEPAM 2 MG INJ IV ONE (11:00)
[2019-04-07] MEDS: MULTIVITAMINS 10 ML, THIAMINE 100 MG, FOLIC ACID 1 MG in SOD CHLORIDE 0.9% 1,000 ML IVPB SCH (13:42)
[2019-04-07] MEDS: POTASSIUM CHLORIDE 50 ML IVPB SCH ×3 (20:19→23:11)
[2019-04-07] MEDS: INSULIN GLARGINE [LANTus] (100 UNITS/ML) SYG SC SCH (20:23)
[2019-04-07] MEDS ORDERED: HALOPERIDOL 5 MG INJ IM ONE (23:00)
[2019-04-08] VITALS (12 sets, daily range): BP systolic 137–156; BP diastolic 85–104; PULSE 82–130; RESP 18–20
[2019-04-08] MEDS: LORAZEPAM 2 MG INJ IV PRN ×2 (00:25→03:28)
[2019-04-08] MEDS: ACCU-CHEK XX SCH (02:07)
[2019-04-08] MEDS: SOD CHLORIDE 0.9% 1,000 ML IV SCH ×7 (02:08→21:25)
[2019-04-08] MEDS: INSULIN ASPART [NOVOLOG] 3 ML PEN SC SCH ×7 (07:37→20:44)
[2019-04-08] MEDS: BENAZEPRIL 10 MG TAB PO SCH (08:48)
[2019-04-08] MEDS: CHLORDIAZEPOXIDE 25 MG CAP PO SCH ×4 (08:48→20:37)
[2019-04-08] MEDS: METOPROLOL 25 MG TAB PO SCH ×2 (08:48→20:38)
[2019-04-08] MEDS: MULTIVITAMINS 10 ML, THIAMINE 100 MG, FOLIC ACID 1 MG in SOD CHLORIDE 0.9% 1,000 ML IVPB SCH (08:54)
--- NOTE | 2019-04-08 08:58 | RADRPT ---
Vent Rate: 131 bpm RR Interval: 456 msec SD Interval: 124 msec QRS Duration: 107 msec QT Interval: 355 msec QTC Interval: 526 msec P-R-T Boyle: 0 - 199 - 57 degrees Sinus tachycardia with PVC Prolonged QT interval...QTc >500mS ABNORMAL ECG Electronically Signed By: Abhijeet Franz
[2019-04-08] MEDS: HEPARIN 5,000 UNIT/1 ML VIAL SC SCH ×2 (09:18→20:39)
--- NOTE | 2019-04-08 09:40 | PN ---
Date/Time of Note Date/Time of Note DATE: 04/08/19 TIME: 09:38 Assessment/Plan VTE Prophylaxis Risk score (from Ns)>0 risk: 6 SCD applied (from Ns): Yes Pharmacological prophylaxis: heparin Lines/Catheters IV Catheter Type (from [facility]): Peripheral IV Urinary Cath still in place: No Assessment/Plan Hospital Course SUBJECTIVE: Patient remains on bilateral soft wrist restraints. Remains tremulous and confused. Has a 1:1 injury/safety hazard assessment. OBJECTIVE: Physical Exam General: Adequately build 53 year-old male lying in bed in no apparent distress, very restless. HEENT: Normocephalic, atraumatic. Eyes: Anicteric sclerae, conjunctivae clear. ENT: Nasal septum midline, oral mucosa moist. Neck supple, no JVD noticed. Respiratory: Bilaterally clear breath sounds. No use of accessory muscles of respiration. No adventitious breath sounds. Cardiovascular: S1, S2 heard. Regular rate and rhythm. Abdomen: Soft, nontender, and nondistended. Bowel sounds positive in all 4 quadrants. Genitourinary: Deferred. Extremities: No cyanosis, no clubbing, no edema. Peripheral pulses palpable. Neurologic: The patient is somnolent. Skin: Normal skin turgor. No skin rashes. Labs & Vitals per chart ASSESSMENT & PLAN 52-year-old male with comorbidities including diabetes mellitus type 2, hypertension, dyslipidemia, and alcohol abuse who was brought in by paramedics from home for hypoglycemia. Patient was admitted to telemetry floor and the patient had a seizure in the telemetry floor. 1. Acute encephalopathy. -Most probably secondary to underlying hypoglycemia. -Currently the sugars are elevated. -Brain CT scan negative. 2. Seizures. -Most probably alcohol withdrawal seizure. -Brain CT scan negative. -Continue seizure precautions. -PRN Ativan for any seizures. 3. Alcohol withdrawal. -Continue tapering dose Librium. -Continue PRN IV Ativan. -Continue multivitamins including thiamine 4. Diabetes mellitus type 2. -Continue the patient on sliding scale insulin along with pre-meal insulin and basal insulin. -Hemoglobin A1c 12.1. 5. Transaminitis without hyperbilirubinemia. -Most probably secondary to underlying alcoholism. -Hepatitis panel negative. -Hold statins. -Obtain liver US. 6. Dyslipidemia. -Low-cholesterol diet. -Hold statins because of underlying transaminitis. -Start omega-3 fatty acids. 7. Hypertension. -Continue antihypertensives. 8. Fluids, electrolytes, and nutrition. -Carbohydrate controlled diet. 9. DVT prophylaxis. -SQ heparin. 10. Plan. -Continue tapering dose of Librium -Monitor for any seizures. -Replete electrolytes. -Await clinical improvement. -Transfer to [place] with a sitter. The patient was seen in collaboration with Dr. Gil. Result Diagram: 04/08/19 0509 04/08/19 0509 Results 24hrs Laboratory Tests Test 04/07/19 12:07 04/07/19 14:16 04/07/19 17:15 04/07/19 20:20 Bedside Glucose 128 271 H 226 H Potassium Level 3.3 L Test 04/08/19 02:05 04/08/19 05:09 04/08/19 07:36 Bedside Glucose 204 126 White Blood Count 8.8 # Red Blood Count 4.04 L Hemoglobin 12.0 L Hematocrit 34.9 L Mean Corpuscular 86.4 Volume Mean Corpuscular 29.7 Hemoglobin Mean Corpuscular 34.4 Hemoglobin Concent Red Cell 13.8 Distribution Width Platelet Count 90 #L Mean Platelet Volume 12.0 H Immature 0.500 H Granulocytes % Neutrophils % 62.5 Lymphocytes % 20.8 Monocytes % 15.1 H Eosinophils % 0.2 Basophils % 0.9 Nucleated Red Blood 0.0 Cells % Immature 0.040 H Granulocytes # Neutrophils # 5.5 Lymphocytes # 1.8 Monocytes # 1.3 H Eosinophils # 0.0 Basophils # 0.1 Nucleated Red Blood 0.0 Cells # Sodium Level 142 Potassium Level 3.4 L Chloride Level 106 Carbon Dioxide Level 22 Anion Gap 14 H Blood Urea Nitrogen 11 Creatinine 0.50 L Est Glomerular > 60 Filtrat Rate mL/min Glucose Level 127 Calcium Level 8.7 Phosphorus Level 1.8 L Magnesium Level 1.3 L Total Bilirubin 0.9 Direct Bilirubin 0.00 Indirect Bilirubin 0.9 Aspartate Amino 190 #H Transf (AST/SGOT) Alanine 95 H Aminotransferase (AL T/SGPT) Alkaline Phosphatase 151 H Total Protein 8.4 H Albumin 4.4 Globulin 4.00 H Albumin/Globulin 1.10 Ratio Exam/Review of Systems Exam Vitals Vital Signs Date Temp Pulse Resp B/P (MAP) Pulse Ox O2 O2 Flow FiO2 Time Delivery Rate 04/08/19 111 08:21 04/08/19 Nasal 2.0 07:19 Cannula 04/08/19 98.3 19 154/93 97 07:12 (113) Intake and Output 04/07/19 04/07/19 04/08/19 1515:00 23:00 07:00 IntakeIntake Total 700 ml 1266.2 ml OutputOutput Total 725 ml BalanceBalance -25 ml 1266.2 ml Results Results 24hrs Laboratory Tests Test 04/07/19 12:07 04/07/19 14:16 04/07/19 17:15 04/07/19 20:20 Bedside Glucose 128 271 H 226 H Potassium Level 3.3 L Test 04/08/19 02:05 04/08/19 05:09 04/08/19 07:36 Bedside Glucose 204 126 White Blood Count 8.8 # Red Blood Count 4.04 L Hemoglobin 12.0 L Hematocrit 34.9 L Mean Corpuscular 86.4 Volume Mean Corpuscular 29.7 Hemoglobin Mean Corpuscular 34.4 Hemoglobin Concent Red Cell 13.8 Distribution Width Platelet Count 90 #L Mean Platelet Volume 12.0 H Immature 0.500 H Granulocytes % Neutrophils % 62.5 Lymphocytes % 20.8 Monocytes % 15.1 H Eosinophils % 0.2 Basophils % 0.9 Nucleated Red Blood 0.0 Cells % Immature 0.040 H Granulocytes # Neutrophils # 5.5 Lymphocytes # 1.8 Monocytes # 1.3 H Eosinophils # 0.0 Basophils # 0.1 Nucleated Red Blood 0.0 Cells # Sodium Level 142 Potassium Level 3.4 L Chloride Level 106 Carbon Dioxide Level 22 Anion Gap 14 H Blood Urea Nitrogen 11 Creatinine 0.50 L Est Glomerular > 60 Filtrat Rate mL/min Glucose Level 127 Calcium Level 8.7 Phosphorus Level 1.8 L Magnesium Level 1.3 L Total Bilirubin 0.9 Direct Bilirubin 0.00 Indirect Bilirubin 0.9 Aspartate Amino 190 #H Transf (AST/SGOT) Alanine 95 H Aminotransferase (AL T/SGPT) Alkaline Phosphatase 151 H Total Protein 8.4 H Albumin 4.4 Globulin 4.00 H Albumin/Globulin 1.10 Ratio Medications Medication Current Medications Sodium Chloride 1,000 ml @ 125 mls/hr Q8H IV Last administered on 04/08/19at 02:12; Admin Dose 125 MLS/HR; Start 04/06/19 at 05:25 IV Flush (NS 3 ml) 3 ml PER PROTOCOL IV ; Start 04/06/19 at 05:30 Lorazepam (Ativan) 2 mg Q10M PRN IV seizure Last administered on 04/07/19at 03:19; Admin Dose 2 MG; Start 04/06/19 at 05:30 Ondansetron HCl (Zofran Inj) 4 mg Q6H PRN IV NAUSEA/VOMITING; Start 04/06/19 at 05:30 Heparin Sodium (Porcine) (Heparin (5000 Units/1ml)) 5,000 unit Q12 SC Last administered on 04/08/19at 09:18; Admin Dose 5,000 UNIT; Start 04/06/19 at 09:00 Diagnostic Test (Pha) (Accu-Chek) 1 ea 02 XX Last administered on 04/08/19at 02:07; Admin Dose 1 EA; Start 04/07/19 at 02:00 Multivitamins 10 ml/Thiamine HCl 100 mg/Folic Acid 1 mg/Sodium Chloride 1,011.2 ml @ 125 mls/ hr DAILY@09 IVPB Last administered on 04/08/19at 08:54; Admin Dose 125 MLS/HR; Start 04/07/19 at 09:00; Stop 04/10/19 at 17:06 Miscellaneous Information 1 ea NOTE XX ; Start 04/06/19 at 06:00 Glucose (Glutose) 15 gm Q15M PRN PO DECREASED GLUCOSE; Start 04/06/19 at 06:00 Glucose (Glutose) 22.5 gm Q15M PRN PO DECREASED GLUCOSE; Start 04/06/19 at 06:00 Dextrose (D50w Syringe) 25 ml Q15M PRN IV DECREASED GLUCOSE; Start 04/06/19 at 06:00 Dextrose (D50w Syringe) 50 ml Q15M PRN IV DECREASED GLUCOSE; Start 04/06/19 at 06:00 Glucagon (Glucagen) 1 mg Q15M PRN IM DECREASED GLUCOSE; Start 04/06/19 at 06:00 Glucose (Glutose) 15 gm Q15M PRN BUCCAL DECREASED GLUCOSE; Start 04/06/19 at 06:00 Acetaminophen (Tylenol Tab) 500 mg Q6H PRN PO MILD PAIN(1-3)OR ELEVATED TEMP Last administered on 04/06/19at 10:14; Admin Dose 500 MG; Start 04/06/19 at 09:00 Hydralazine HCl (Apresoline) 10 mg Q6H PRN IV SBP>160 Last administered on 04/07/19 05:08; Admin Dose 10 MG; Start 04/06/19 at 09:00 Benazepril HCl (Lotensin) 10 mg DAILY PO Last administered on 04/08/19 08:48; Admin Dose 10 MG; Start 04/07/19 at 09:00 Chlordiazepoxide (Librium) 25 mg TID PO Last administered on 04/08/19 08:48; Admin Dose 25 MG; Start 04/06/19 at 13:00 Insulin Glargine (Lantus) 11 units DAILY@2000 SC Last administered on 04/07/19 20:23; Admin Dose 11 UNITS; Start 04/06/19 at 20:00 Insulin Aspart (Novolog Insulin Pen) 4 unit WITH MEALS SC Last administered on 04/08/19 07:59; Admin Dose 4 UNIT; Start 04/06/19 at 12:00 Insulin Aspart (Novolog Insulin Pen) NOVOLOG *MILD* ALGORITHM WITH MEALS BEDTIME SC Last administered on 04/07/19 20:30; Admin Dose 2 UNIT; Start 04/06/19 at 12:00 Lorazepam (Ativan) 1 mg Q2H PRN IV anxiety; Start 04/07/19 at 03:30 Lorazepam (Ativan) 2 mg Q2H PRN IV SEVERE AGITATION Last administered on 04/08/19 03:28; Admin Dose 2 MG; Start 04/07/19 at 03:30 Metoprolol Tartrate (Lopressor) 2.5 mg Q6H PRN IV HR>130 Last administered on 04/08/19 01:29; Admin Dose 2.5 MG; Start 04/07/19 at 08:30 Metoprolol Tartrate (Lopressor) 12.5 mg BID PO Last administered on 04/08/19 08:48; Admin Dose 12.5 MG; Start 04/07/19 at 10:00 AIME DUARTE NP April 08, 2019 09:40
[2019-04-08] MEDS ORDERED: MAGNESIUM SULFATE 3 GM in DEXTROSE 5% 100 ML IVPB ONE (11:00)
[2019-04-08] MEDS ORDERED: POTASSIUM PHOSPHATE 15 MM in SOD CHLORIDE 0.9% 250 ML IVPB ONE (11:00)
[2019-04-08] MEDS: INSULIN GLARGINE [LANTus] (100 UNITS/ML) SYG SC SCH (20:43)
[2019-04-09 01:31] VITALS: BP 164/89; PULSE 89; RESP 19
[2019-04-09] MEDS: hydrALAzine 20 MG INJ IV PRN (01:48)
[2019-04-09] MEDS: ACCU-CHEK XX SCH (01:57)
[2019-04-09 03:01] VITALS: BP 136/77; PULSE 99; RESP 18
[2019-04-09 08:10] VITALS: BP 155/95; PULSE 89; RESP 18
[2019-04-09] MEDS: POTASSIUM CHLORIDE (SR) 20 MEQ TAB PO SCH ×3 (08:18→12:15)
[2019-04-09] MEDS: CHLORDIAZEPOXIDE 25 MG CAP PO SCH ×2 (08:19→12:15)
[2019-04-09] MEDS: METOPROLOL 25 MG TAB PO SCH ×2 (08:19→20:57)
[2019-04-09] MEDS: HEPARIN 5,000 UNIT/1 ML VIAL SC SCH ×2 (08:23→20:55)
[2019-04-09] MEDS: INSULIN ASPART [NOVOLOG] 3 ML PEN SC SCH ×7 (08:23→20:56)
[2019-04-09] MEDS ORDERED: MAGNESIUM SULFATE 3 GM in DEXTROSE 5% 100 ML IVPB ONE (09:00)
[2019-04-09] MEDS: BENAZEPRIL 10 MG TAB PO SCH (09:00)
--- NOTE | 2019-04-09 11:55 | PN ---
Date/Time of Note Date/Time of Note DATE: 04/09/19 TIME: 11:53 Assessment/Plan VTE Prophylaxis Risk score (from Ns)>0 risk: 2 SCD applied (from [facility] [place]): No SCD contraindicated: other Pharmacological prophylaxis: heparin Lines/Catheters IV Catheter Type (from [facility]): Peripheral IV Urinary Cath still in place: No Assessment/Plan Hospital Course SUBJECTIVE: Patient remains off bilateral soft wrist restraints. Remains tremulous but alert. Has a 1:1 safety risk lead. OBJECTIVE: Physical Exam General: Adequately build 53 year-old male lying in bed in no apparent distress, very restless. HEENT: Normocephalic, atraumatic. Eyes: Anicteric sclerae, conjunctivae clear. ENT: Nasal septum midline, oral mucosa moist. Neck supple, no JVD noticed. Respiratory: Bilaterally clear breath sounds. No use of accessory muscles of respiration. No adventitious breath sounds. Cardiovascular: S1, S2 heard. Regular rate and rhythm. Abdomen: Soft, nontender, and nondistended. Bowel sounds positive in all 4 quadrants. Genitourinary: Deferred. Extremities: No cyanosis, no clubbing, no edema. Peripheral pulses palpable. Neurologic: The patient is awake and alert. Oriented X 4. Skin: Normal skin turgor. No skin rashes. Labs & Vitals per chart ASSESSMENT & PLAN 52-year-old male with comorbidities including diabetes mellitus type 2, hy pertension, dyslipidemia, and alcohol abuse who was brought in by paramedics from home for hypoglycemia. Patient was admitted to telemetry floor and the patient had a seizure in the telemetry floor. 1. Acute encephalopathy. -Most probably secondary to underlying hypoglycemia. -Currently the sugars are elevated. -Brain CT scan negative. 2. Seizures. -Most probably alcohol withdrawal seizure. -Brain CT scan negative. -Continue seizure precautions. -PRN Ativan for any seizures. 3. Alcohol withdrawal. -Continue tapering dose Librium. -Continue PRN IV Ativan. -Continue multivitamins including thiamine 4. Diabetes mellitus type 2. -Continue the patient on sliding scale insulin along with pre-meal insulin and basal insulin. -Hemoglobin A1c 12.1. 5. Transaminitis without hyperbilirubinemia. -Most probably secondary to underlying alcoholism. -Hepatitis panel negative. -Hold statins. -Liver US showing fatty metamorphosis of liver.. 6. Dyslipidemia. -Low-cholesterol diet. -Hold statins because of underlying transaminitis. -Continue omega-3 fatty acids. 7. Hypertension. -Continue antihypertensives. 8. Fluids, electrolytes, and nutrition. -Carbohydrate controlled diet. 9. DVT prophylaxis. -SQ heparin. 10. Plan. -Continue tapering dose of Librium -Monitor for any seizures. -Replete electrolytes. -Await clinical improvement. -PT evaluation. The patient was seen in collaboration with Dr. Gil. Result Diagram: 04/09/1955804/09/19558 Results 24hrs Laboratory Tests Test 04/08/19 17:12 04/08/19 20:29 04/09/19 01:56 04/09/19 05:59 Bedside Glucose 128 208 238 H White Blood Count 4.7 #L Red Blood Count 3.79 L Hemoglobin 11.2 L Hematocrit 33.0 L Mean Corpuscular 87.1 Volume Mean Corpuscular 29.6 Hemoglobin Mean Corpuscular 33.9 Hemoglobin Concent Red Cell 14.2 Distribution Width Platelet Count 94 L Mean Platelet Volume 10.5 H Immature 0.200 Granulocytes % Neutrophils % 51.8 Lymphocytes % 29.4 Monocytes % 15.4 H Eosinophils % 1.9 Basophils % 1.3 Nucleated Red Blood 0.0 Cells % Immature 0.010 Granulocytes # Neutrophils # 2.5 Lymphocytes # 1.4 Monocytes # 0.7 Eosinophils # 0.1 Basophils # 0.1 Nucleated Red Blood 0.0 Cells # Sodium Level 139 Potassium Level 2.7 *L Chloride Level 108 Carbon Dioxide Level 24 Anion Gap 7 Blood Urea Nitrogen 12 Creatinine 0.52 L Est Glomerular > 60 Filtrat Rate mL/min Glucose Level 174 Calcium Level 8.4 Phosphorus Level 3.3 Magnesium Level 1.5 L Total Bilirubin 0.8 Direct Bilirubin 0.00 Indirect Bilirubin 0.8 Aspartate Amino 143 H Transf (AST/SGOT) Alanine 87 H Aminotransferase (AL T/SGPT) Alkaline Phosphatase 135 H Total Protein 6.7 # Albumin 3.6 Globulin 3.10 Albumin/Globulin 1.16 Ratio Test 04/09/19 08:18 Bedside Glucose 157 Exam/Review of Systems Exam Vitals Vital Signs Date Temp Pulse Resp B/P (MAP) Pulse Ox O2 O2 Flow FiO2 Time Delivery Rate 04/09/19 98.7 89 18 155/95 98 Room Air 08:10 (115) 04/08/19 2.0 07:19 Intake and Output 04/08/19 04/08/19 04/09/19 1414:59 22:59 06:59 IntakeIntake Total 1672.2 ml 275 ml BalanceBalance 1672.2 ml 275 ml Results Results 24hrs Laboratory Tests Test 04/08/19 17:12 04/08/19 20:29 04/09/19 01:56 04/09/19 05:59 Bedside Glucose 128 208 238 H White Blood Count 4.7 #L Red Blood Count 3.79 L Hemoglobin 11.2 L Hematocrit 33.0 L Mean Corpuscular 87.1 Volume Mean Corpuscular 29.6 Hemoglobin Mean Corpuscular 33.9 Hemoglobin Concent Red Cell 14.2 Distribution Width Platelet Count 94 L Mean Platelet Volume 10.5 H Immature 0.200 Granulocytes % Neutrophils % 51.8 Lymphocytes % 29.4 Monocytes % 15.4 H Eosinophils % 1.9 Basophils % 1.3 Nucleated Red Blood 0.0 Cells % Immature 0.010 Granulocytes # Neutrophils # 2.5 Lymphocytes # 1.4 Monocytes # 0.7 Eosinophils # 0.1 Basophils # 0.1 Nucleated Red Blood 0.0 Cells # Sodium Level 139 Potassium Level 2.7 *L Chloride Level 108 Carbon Dioxide Level 24 Anion Gap 7 Blood Urea Nitrogen 12 Creatinine 0.52 L Est Glomerular > 60 Filtrat Rate mL/min Glucose Level 174 Calcium Level 8.4 Phosphorus Level 3.3 Magnesium Level 1.5 L Total Bilirubin 0.8 Direct Bilirubin 0.00 Indirect Bilirubin 0.8 Aspartate Amino 143 H Transf (AST/SGOT) Alanine 87 H Aminotransferase (AL T/SGPT) Alkaline Phosphatase 135 H Total Protein 6.7 # Albumin 3.6 Globulin 3.10 Albumin/Globulin 1.16 Ratio Test 04/09/19 08:18 Bedside Glucose 157 Medications Medication Current Medications IV Flush (NS 3 ml) 3 ml PER PROTOCOL IV ; Start 04/06/19 at 05:30 Lorazepam (Ativan) 2 mg Q10M PRN IV seizure Last administered on 04/07/19at 03:19; Admin Dose 2 MG; Start 04/06/19 at 05:30 Ondansetron HCl (Zofran Inj) 4 mg Q6H PRN IV NAUSEA/VOMITING; Start 04/06/19 at 05:30 Heparin Sodium (Porcine) (Heparin (5000 Units/1ml)) 000 unit Q12 SC Last administered on 04/09/19at 08:23; Admin Dose 5,000 UNIT; Start 04/06/19 at 09:00 Diagnostic Test (Pha) (Accu-Chek) 1 ea 02 XX Last administered on 04/08/19at 02:07; Admin Dose 1 EA; Start 04/07/19 at 02:00 Multivitamins 10 ml/Thiamine HCl 100 mg/Folic Acid 1 mg/Sodium Chloride 1,011.2 ml @ 125 mls/ hr DAILY@09 IVPB Last administered on 04/08/19at 08:54; Admin Dose 125 MLS/HR; Start 04/07/19 at 09:00; Stop 04/10/19 at 17:06 Miscellaneous Information 1 ea NOTE XX ; Start 04/06/19 at 06:00 Glucose (Glutose) 15 gm Q15M PRN PO DECREASED GLUCOSE; Start 04/06/19 at 06:00 Glucose (Glutose) 22.5 gm Q15M PRN PO DECREASED GLUCOSE; Start 04/06/19 at 06:00 Dextrose (D50w Syringe) 25 ml Q15M PRN IV DECREASED GLUCOSE; Start 04/06/19 at 06:00 Dextrose (D50w Syringe) 50 ml Q15M PRN IV DECREASED GLUCOSE; Start 04/06/19 at 06:00 Glucagon (Glucagen) 1 mg Q15M PRN IM DECREASED GLUCOSE; Start 04/06/19 at 06:00 Glucose (Glutose) 15 gm Q15M PRN BUCCAL DECREASED GLUCOSE; Start 04/06/19 at 06:00 Acetaminophen (Tylenol Tab) 500 mg Q6H PRN PO MILD PAIN(1-3)OR ELEVATED TEMP Last administered on 04/06/19at 10:14; Admin Dose 500 MG; Start 04/06/19 at 09:00 Hydralazine HCl (Apresoline) 10 mg Q6H PRN IV SBP>160 Last administered on 04/09/19at 01:48; Admin Dose 10 MG; Start 04/06/19 at 09:00 Benazepril HCl (Lotensin) 10 mg DAILY PO Last administered on 04/08/19at 08:48; Admin Dose 10 MG; Start 04/07/19 at 09:00 Chlordiazepoxide (Librium) 25 mg TID PO Last administered on 04/09/19 08:19; Admin Dose 25 MG; Start 04/06/19 at 13:00 Insulin Glargine (Lantus) 11 units DAILY@2000 SC Last administered on 04/08/19 20:43; Admin Dose 11 UNITS; Start 04/06/19 at 20:00 Insulin Aspart (Novolog Insulin Pen) 4 unit WITH MEALS SC Last administered on 04/09/19 08:23; Admin Dose 4 UNIT; Start 04/06/19 at 12:00 Insulin Aspart (Novolog Insulin Pen) NOVOLOG *MILD* ALGORITHM WITH MEALS BEDTIME SC Last administered on 04/09/19 08:24; Admin Dose 1 UNIT; Start 04/06/19 at 12:00 Lorazepam (Ativan) 1 mg Q2H PRN IV anxiety; Start 04/07/19 at 03:30 Lorazepam (Ativan) 2 mg Q2H PRN IV SEVERE AGITATION Last administered on 04/08/19 03:28; Admin Dose 2 MG; Start 04/07/19 at 03:30 Metoprolol Tartrate (Lopressor) 2.5 mg Q6H PRN IV HR>130 Last administered on 04/08/19 01:29; Admin Dose 2.5 MG; Start 04/07/19 at 08:30 Metoprolol Tartrate (Lopressor) 12.5 mg BID PO Last administered on 04/09/19 08:19; Admin Dose 12.5 MG; Start 04/07/19 at 10:00 Magnesium Sulfate 3 gm/Dextrose 106 ml @ 35.333 mls/ hr ONCE ONCE IVPB Last administered on 04/09/19 10:04; Admin Dose 35.333 MLS/HR; Start 04/09/19 at 09:00; Stop 04/09/19 at 11:59 Potassium Chloride (Klor-Con 20) 20 meq Q2H PO Last administered on 04/09/19 08:18; Admin Dose 20 MEQ; Start 04/09/19 at 08:00; Stop 04/09/19 at 12:01 AIME DUARTE NP April 09, 2019 11:55
[2019-04-09] MEDS: MULTIVITAMINS 10 ML, THIAMINE 100 MG, FOLIC ACID 1 MG in SOD CHLORIDE 0.9% 1,000 ML IVPB SCH (12:29)
[2019-04-09] MEDS ORDERED: POTASSIUM CHLORIDE (SR) 20 MEQ TAB PO SCH (14:00)
[2019-04-09 14:24] VITALS: BP 119/84; PULSE 96; RESP 18
[2019-04-09 20:00] VITALS: BP 146/97; PULSE 102; RESP 18
[2019-04-09] MEDS: FISH OIL 1,000 MG CAP PO SCH (20:49)
[2019-04-09] MEDS: INSULIN GLARGINE [LANTus] (100 UNITS/ML) SYG SC SCH (20:55)
[2019-04-09] MEDS: CHLORDIAZEPOXIDE 5 MG CAP PO SCH (21:21)
[2019-04-10 02:00] VITALS: BP 155/88; PULSE 77; RESP 19
[2019-04-10] MEDS: ACCU-CHEK XX SCH (02:13)
[2019-04-10 07:48] VITALS: BP 160/98; PULSE 77; RESP 18
[2019-04-10] MEDS: BENAZEPRIL 10 MG TAB PO SCH (08:11)
[2019-04-10] MEDS: FISH OIL 1,000 MG CAP PO SCH ×2 (08:11→20:58)
[2019-04-10] MEDS: CHLORDIAZEPOXIDE 5 MG CAP PO SCH ×3 (08:11→20:59)
[2019-04-10] MEDS: METOPROLOL 25 MG TAB PO SCH ×2 (08:13→21:03)
[2019-04-10] MEDS: HEPARIN 5,000 UNIT/1 ML VIAL SC SCH ×2 (08:17→21:04)
[2019-04-10] MEDS: MULTIVITAMINS 10 ML, THIAMINE 100 MG, FOLIC ACID 1 MG in SOD CHLORIDE 0.9% 1,000 ML IVPB SCH (08:18)
[2019-04-10] MEDS: INSULIN ASPART [NOVOLOG] 3 ML PEN SC SCH ×7 (08:18→21:06)
[2019-04-10 13:49] VITALS: BP 171/101; PULSE 83; RESP 18
[2019-04-10] MEDS: hydrALAzine 20 MG INJ IV PRN (13:55)
[2019-04-10 14:26] VITALS: BP 133/80; PULSE 81
[2019-04-10] MEDS ORDERED: POTASSIUM CHLORIDE (SR) 20 MEQ TAB PO STA (14:44)
--- NOTE | 2019-04-10 14:46 | PN ---
Date/Time of Note Date/Time of Note DATE: 04/10/19 TIME: 14:45 Assessment/Plan VTE Prophylaxis Risk score (from Ns)>0 risk: 2 [place] [facility] [place]CD contraindicated: other Pharmacological prophylaxis: heparin Lines/Catheters IV Catheter Type (from [email or web address] Peripheral IV Urinary Cath still in place: No Assessment/Plan Hospital Course SUBJECTIVE: Patient remains off bilateral soft wrist restraints. Remains tremulous but alert. 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 OBJECTIVE: Physical Exam General: Adequately build 53 year-old male lying in bed in no apparent distress, very restless. HEENT: Normocephalic, atraumatic. Eyes: Anicteric sclerae, conjunctivae clear. ENT: Nasal septum midline, oral mucosa moist. Neck supple, no JVD noticed. Respiratory: Bilaterally clear breath sounds. No use of accessory muscles of respiration. No adventitious breath sounds. Cardiovascular: S1, S2 heard. Regular rate and rhythm. Abdomen: Soft, nontender, and nondistended. Bowel sounds positive in all 4 quadrants. Genitourinary: Deferred. Extremities: No cyanosis, no clubbing, no edema. Peripheral pulses palpable. Neurologic: The patient is awake and alert. Oriented X 4. Skin: Normal skin turgor. No skin rashes. Labs & Vitals per chart ASSESSMENT & PLAN 52-year-old male with comorbidities including diabetes mellitus type 2, hy pertension, dyslipidemia, and alcohol abuse who was brought in by paramedics from home for hypoglycemia. Patient was admitted to telemetry floor and the patient had a seizure in the telemetry floor. 1. Acute encephalopathy. -Most probably secondary to underlying hypoglycemia. -Currently the sugars are elevated. -Brain CT scan negative. 2. Seizures. -Most probably alcohol withdrawal seizure. -Brain CT scan negative. -Continue seizure precautions. -PRN Ativan for any seizures. 3. Alcohol withdrawal. -Continue tapering dose Librium. -Continue PRN IV Ativan. -Continue multivitamins including thiamine 4. Diabetes mellitus type 2. -Continue the patient on sliding scale insulin along with pre-meal insulin and basal insulin. -Hemoglobin A1c 12.1. 5. Transaminitis without hyperbilirubinemia. -Most probably secondary to underlying alcoholism. -Hepatitis panel negative. -Hold statins. -Liver US showing fatty metamorphosis of liver. 6. Dyslipidemia. -Low-cholesterol diet. -Hold statins because of underlying transaminitis. -Continue omega-3 fatty acids. 7. Hypertension. -Continue antihypertensives. 8. Fluids, electrolytes, and nutrition. -Carbohydrate controlled diet. 9. DVT prophylaxis. -SQ heparin. 10. Plan. -Continue tapering dose of Librium -Monitor for any seizures. -Replete electrolytes. -Await clinical improvement. -DC 1:1 sitter. The patient was seen in collaboration with Dr. Gil. Result Diagram: 04/10/19 0701 04/10/19 0701 Results 24hrs Laboratory Tests Test 04/09/19 15:24 04/09/19 17:00 04/09/19 20:48 04/10/19 02:14 Sodium Level 135 Potassium Level 3.7 Chloride Level 106 Carbon Dioxide Level 20 L Anion Gap 9 Blood Urea Nitrogen 16 Creatinine 0.57 L Est Glomerular > 60 Filtrat Rate mL/min Glucose Level 170 Calcium Level 8.5 Magnesium Level 2.2 Bedside Glucose 184 287 H 170 Test 04/10/19 07:01 04/10/19 08:10 04/10/19 12:10 White Blood Count 3.8 L Red Blood Count 3.70 L Hemoglobin 10.9 L Hematocrit 32.7 L Mean Corpuscular 88.4 Volume Mean Corpuscular 29.5 Hemoglobin Mean Corpuscular 33.3 Hemoglobin Concent Red Cell 14.5 Distribution Width Platelet Count 128 #L Mean Platelet Volume 10.3 Immature 0.300 Granulocytes % Neutrophils % 39.9 Lymphocytes % 38.4 Monocytes % 17.5 H Eosinophils % 2.9 Basophils % 1.0 Nucleated Red Blood 0.0 Cells % Immature 0.010 Granulocytes # Neutrophils # 1.5 L Lymphocytes # 1.5 Monocytes # 0.7 Eosinophils # 0.1 Basophils # 0.0 Nucleated Red Blood 0.0 Cells # Sodium Level 140 Potassium Level 3.0 L Chloride Level 109 Carbon Dioxide Level 23 Anion Gap 8 Blood Urea Nitrogen 11 Creatinine 0.52 L Est Glomerular > 60 Filtrat Rate mL/min Glucose Level 186 Calcium Level 8.7 Phosphorus Level 3.3 Magnesium Level 1.3 L Total Bilirubin 0.8 Direct Bilirubin 0.00 Indirect Bilirubin 0.8 Aspartate Amino 167 H Transf (AST/SGOT) Alanine 115 H Aminotransferase (AL T/SGPT) Alkaline Phosphatase 139 H Total Protein 7.1 Albumin 3.6 Globulin 3.50 H Albumin/Globulin 1.02 Ratio Bedside Glucose 217 278 H Exam/Review of Systems Exam Vitals Vital Signs Date Temp Pulse Resp B/P (MAP) Pulse Ox O2 O2 Flow FiO2 Time Delivery Rate 04/10/19 81 133/80 14:26 (97) 04/10/19 98.5 18 99 Room Air 13:49 04/08/19 2.0 07:19 Intake and Output 04/09/19 04/09/19 04/10/19 1515:00 23:00 07:00 IntakeIntake Total 106 ml 1011.2 ml BalanceBalance 106 ml 1011.2 ml Results Results 24hrs Laboratory Tests Test 04/09/19 15:24 04/09/19 17:00 04/09/19 20:48 04/10/19 02:14 Sodium Level 135 Potassium Level 3.7 Chloride Level 106 Carbon Dioxide Level 20 L Anion Gap 9 Blood Urea Nitrogen 16 Creatinine 0.57 L Est Glomerular > 60 Filtrat Rate mL/min Glucose Level 170 Calcium Level 8.5 Magnesium Level 2.2 Bedside Glucose 184 287 H 170 Test 04/10/19 07:01 04/10/19 08:10 04/10/19 12:10 White Blood Count 3.8 L Red Blood Count 3.70 L Hemoglobin 10.9 L Hematocrit 32.7 L Mean Corpuscular 88.4 Volume Mean Corpuscular 29.5 Hemoglobin Mean Corpuscular 33.3 Hemoglobin Concent Red Cell 14.5 Distribution Width Platelet Count 128 #L Mean Platelet Volume 10.3 Immature 0.300 Granulocytes % Neutrophils % 39.9 Lymphocytes % 38.4 Monocytes % 17.5 H Eosinophils % 2.9 Basophils % 1.0 Nucleated Red Blood 0.0 Cells % Immature 0.010 Granulocytes # Neutrophils # 1.5 L Lymphocytes # 1.5 Monocytes # 0.7 Eosinophils # 0.1 Basophils # 0.0 Nucleated Red Blood 0.0 Cells # Sodium Level 140 Potassium Level 3.0 L Chloride Level 109 Carbon Dioxide Level 23 Anion Gap 8 Blood Urea Nitrogen 11 Creatinine 0.52 L Est Glomerular > 60 Filtrat Rate mL/min Glucose Level 186 Calcium Level 8.7 Phosphorus Level 3.3 Magnesium Level 1.3 L Total Bilirubin 0.8 Direct Bilirubin 0.00 Indirect Bilirubin 0.8 Aspartate Amino 167 H Transf (AST/SGOT) Alanine 115 H Aminotransferase (AL T/SGPT) Alkaline Phosphatase 139 H Total Protein 7.1 Albumin 3.6 Globulin 3.50 H Albumin/Globulin 1.02 Ratio Bedside Glucose 217 278 H Medications Medication Current Medications IV Flush (NS 3 ml) 3 ml PER PROTOCOL IV ; Start 04/06/19 at 05:30 Lorazepam (Ativan) 2 mg Q10M PRN IV seizure Last administered on 04/07/19at 03:19; Admin Dose 2 MG; Start 04/06/19 at 05:30 Ondansetron HCl (Zofran Inj) 4 mg Q6H PRN IV NAUSEA/VOMITING; Start 04/06/19 at 05:30 Heparin Sodium (Porcine) (Heparin (5000 Units/1ml)) 5,000 unit Q12 SC Last administered on 04/10/19at 08:17; Admin Dose 5,000 UNIT; Start 04/06/19 at 09:00 Diagnostic Test (Pha) (Accu-Chek) 1 ea 02 XX Last administered on 04/10/19at 02:13; Admin Dose 1 EA; Start 04/07/19 at 02:00 Miscellaneous Information 1 ea NOTE XX ; Start 04/06/19 at 06:00 Glucose (Glutose) 15 gm Q15M PRN PO DECREASED GLUCOSE; Start 04/06/19 at 06:00 Glucose (Glutose) 22.5 gm Q15M PRN PO DECREASED GLUCOSE; Start 04/06/19 at 06:00 Dextrose (D50w Syringe) 25 ml Q15M PRN IV DECREASED GLUCOSE; Start 04/06/19 at 06:00 Dextrose (D50w Syringe) 50 ml Q15M PRN IV DECREASED GLUCOSE; Start 04/06/19 at 06:00 Glucagon (Glucagen) 1 mg Q15M PRN IM DECREASED GLUCOSE; Start 04/06/19 at 06:00 Glucose (Glutose) 15 gm Q15M PRN BUCCAL DECREASED GLUCOSE; Start 04/06/19 at 06:00 Acetaminophen (Tylenol Tab) 500 mg Q6H PRN PO MILD PAIN(1-3)OR ELEVATED TEMP Last administered on 04/06/19at 10:14; Admin Dose 500 MG; Start 04/06/19 at 09:00 Hydralazine HCl (Apresoline) 10 mg Q6H PRN IV SBP>160 Last administered on 04/10/19at 13:55; Admin Dose 10 MG; Start 04/06/19 at 09:00 Benazepril HCl (Lotensin) 10 mg DAILY PO Last administered on 04/10/19 08:11; Admin Dose 10 MG; Start 04/07/19 at 09:00 Insulin Glargine (Lantus) 11 units DAILY@2000 SC Last administered on 04/09/19 20:55; Admin Dose 11 UNITS; Start 04/06/19 at 20:00 Insulin Aspart (Novolog Insulin Pen) 4 unit WITH MEALS SC Last administered on 04/10/19 12:12; Admin Dose 4 UNIT; Start 04/06/19 at 12:00 Insulin Aspart (Novolog Insulin Pen) NOVOLOG *MILD* ALGORITHM WITH MEALS BEDTIME SC Last administered on 04/10/19 12:12; Admin Dose 4 UNIT; Start 04/06/19 at 12:00 Lorazepam (Ativan) 1 mg Q2H PRN IV anxiety; Start 04/07/19 at 03:30 Lorazepam (Ativan) 2 mg Q2H PRN IV SEVERE AGITATION Last administered on 04/08/19 03:28; Admin Dose 2 MG; Start 04/07/19 at 03:30 Metoprolol Tartrate (Lopressor) 2.5 mg Q6H PRN IV HR>130 Last administered on 04/08/19 01:29; Admin Dose 2.5 MG; Start 04/07/19 at 08:30 Metoprolol Tartrate (Lopressor) 12.5 mg BID PO Last administered on 04/10/19 08:13; Admin Dose 12.5 MG; Start 04/07/19 at 10:00 Fish Oil (Fish Oil) 2,000 mg BID PO Last administered on 04/10/19 08:11; Admin Dose 2,000 MG; Start 04/09/19 at 21:00 Chlordiazepoxide (Librium) 10 mg TID PO Last administered on 04/10/19 12:10; Admin Dose 10 MG; Start 04/09/19 at 21:00 AIME DUARTE NP April 10, 2019 14:46
[2019-04-10] MEDS ORDERED: MAGNESIUM SULFATE 3 GM in DEXTROSE 5% 100 ML IVPB ONE (16:00)
[2019-04-10] MEDS: VITAMIN B COMPLEX/VIT C CAP PO SCH (17:14)
[2019-04-10 21:01] VITALS: BP 144/95; PULSE 85; RESP 18
[2019-04-10] MEDS: INSULIN GLARGINE [LANTus] (100 UNITS/ML) SYG SC SCH (21:06)
[2019-04-11] MEDS: ACCU-CHEK XX SCH (02:14)
[2019-04-11 02:40] VITALS: BP 133/80; PULSE 69; RESP 18
[2019-04-11 08:00] VITALS: BP 133/79; PULSE 70; RESP 18
[2019-04-11] MEDS: HEPARIN 5,000 UNIT/1 ML VIAL SC SCH ×2 (08:28→21:39)
[2019-04-11] MEDS: INSULIN ASPART [NOVOLOG] 3 ML PEN SC SCH ×7 (08:31→21:37)
[2019-04-11] MEDS: BENAZEPRIL 10 MG TAB PO SCH (08:42)
[2019-04-11] MEDS: FISH OIL 1,000 MG CAP PO SCH ×2 (08:42→21:40)
[2019-04-11] MEDS: VITAMIN B COMPLEX/VIT C CAP PO SCH (08:42)
[2019-04-11] MEDS: CHLORDIAZEPOXIDE 5 MG CAP PO SCH ×3 (08:42→21:40)
[2019-04-11] MEDS: METOPROLOL 25 MG TAB PO SCH ×2 (08:44→21:39)
[2019-04-11] MEDS ORDERED: MAGNESIUM SULFATE 3 GM in DEXTROSE 5% 100 ML IVPB ONE (09:00)
[2019-04-11] MEDS ORDERED: POTASSIUM CHLORIDE (SR) 10 MEQ TAB PO ONE (09:00)
[2019-04-11 14:00] VITALS: BP 154/93; PULSE 86; RESP 18
--- NOTE | 2019-04-11 16:25 | PN ---
Date/Time of Note Date/Time of Note DATE: 04/11/19 TIME: 16:24 Assessment/Plan VTE Prophylaxis Risk score (from Ns)>0 risk: 2 SCD applied (from [facility] [place] No SCD contraindicated: other Pharmacological prophylaxis: heparin Lines/Catheters IV Catheter Type (from [facility]): Peripheral IV Urinary Cath still in place: No Assessment/Plan Hospital Course SUBJECTIVE: Patient remains off bilateral soft wrist restraints. Remains tremulous but alert. OBJECTIVE: Physical Exam General: Adequately build 53 year-old male lying in bed in no apparent distress, very restless. HEENT: Normocephalic, atraumatic. Eyes: Anicteric sclerae, conjunctivae clear. ENT: Nasal septum midline, oral mucosa moist. Neck supple, no JVD noticed. Respiratory: Bilaterally clear breath sounds. No use of accessory muscles of respiration. No adventitious breath sounds. Cardiovascular: S1, S2 heard. Regular rate and rhythm. Abdomen: Soft, nontender, and nondistended. Bowel sounds positive in all 4 quadrants. Genitourinary: Deferred. Extremities: No cyanosis, no clubbing, no edema. Peripheral pulses palpable. Neurologic: The patient is awake and alert. Oriented X 4. Skin: Normal skin turgor. No skin rashes. Labs & Vitals per chart ASSESSMENT & PLAN 52-year-old male with comorbidities including diabetes mellitus type 2, hypertension, dyslipidemia, and alcohol abuse who was brought in by paramedics from home for hypoglycemia. Patient was admitted to telemetry floor and the patient had a seizure in the telemetry floor. 1. Acute encephalopathy. -Most probably secondary to underlying hypoglycemia. -Currently the sugars are elevated. -Brain CT scan negative. 2. Seizures. -Most probably alcohol withdrawal seizure. -Brain CT scan negative. -Continue seizure precautions. -PRN Ativan for any seizures. 3. Alcohol withdrawal. -Continue tapering dose Librium. -Continue PRN IV Ativan. -Continue multivitamins including thiamine 4. Diabetes mellitus type 2. -Continue the patient on sliding scale insulin along with pre-meal insulin and basal insulin. -Hemoglobin A1c 12.1. 5. Transaminitis without hyperbilirubinemia. -Most probably secondary to underlying alcoholism. -Hepatitis panel negative. -Hold statins. -Liver US showing fatty metamorphosis of liver. 6. Dyslipidemia. -Low-cholesterol diet. -Hold statins because of underlying transaminitis. -Continue omega-3 fatty acids. 7. Hypertension. -Continue antihypertensives. 8. Fluids, electrolytes, and nutrition. -Carbohydrate controlled diet. 9. DVT prophylaxis. -SQ heparin. 10. Plan. -Continue tapering dose of Librium -Monitor for any seizures. -Replete electrolytes. -Await clinical improvement. The patient was seen in collaboration with Dr. Gil. Result Diagram: 04/11/19 0646 04/11/19 0646 Results 24hrs Laboratory Tests Test 04/10/19 17:08 04/10/19 20:55 04/11/19 02:04 04/11/19 06:46 Bedside Glucose 201 286 H 244 H White Blood Count 4.4 L Red Blood Count 3.62 L Hemoglobin 10.7 L Hematocrit 32.1 L Mean Corpuscular 88.7 Volume Mean Corpuscular 29.6 Hemoglobin Mean Corpuscular 33.3 Hemoglobin Concent Red Cell Distribution 14.6 H Width Platelet Count 151 Mean Platelet Volume 10.9 H Immature Granulocytes 0.200 % Neutrophils % 38.6 L Lymphocytes % 38.0 Monocytes % 19.1 H Eosinophils % 2.7 Basophils % 1.4 Nucleated Red Blood 0.0 Cells % Immature Granulocytes 0.010 # Neutrophils # 1.7 Lymphocytes # 1.7 Monocytes # 0.8 Eosinophils # 0.1 Basophils # 0.1 Nucleated Red Blood 0.0 Cells # Sodium Level 141 Potassium Level 3.4 L Chloride Level 109 Carbon Dioxide Level 26 Anion Gap 6 Blood Urea Nitrogen 13 Creatinine 0.66 Est Glomerular Filtrat > 60 Rate mL/min Glucose Level 196 Calcium Level 9.4 Phosphorus Level 3.7 Magnesium Level 1.4 L Test 04/11/19 08:29 04/11/19 12:15 Bedside Glucose 165 209 Exam/Review of Systems Exam Vitals Vital Signs Date Temp Pulse Resp B/P (MAP) Pulse Ox O2 O2 Flow FiO2 Time Delivery Rate 04/11/19 98.2 86 18 154/93 100 14:00 (113) 04/10/19 Room Air 13:49 04/08/19 2.0 07:19 Intake and Output 04/10/19 04/10/19 04/11/19 1515:00 23:00 07:00 IntakeIntake Total 850 ml 106 ml BalanceBalance 850 ml 106 ml Results Results 24hrs Laboratory Tests Test 04/10/19 17:08 04/10/19 20:55 04/11/19 02:04 04/11/19 06:46 Bedside Glucose 201 286 H 244 H White Blood Count 4.4 L Red Blood Count 3.62 L Hemoglobin 10.7 L Hematocrit 32.1 L Mean Corpuscular 88.7 Volume Mean Corpuscular 29.6 Hemoglobin Mean Corpuscular 33.3 Hemoglobin Concent Red Cell Distribution 14.6 H Width Platelet Count 151 Mean Platelet Volume 10.9 H Immature Granulocytes 0.200 % Neutrophils % 38.6 L Lymphocytes % 38.0 Monocytes % 19.1 H Eosinophils % 2.7 Basophils % 1.4 Nucleated Red Blood 0.0 Cells % Immature Granulocytes 0.010 # Neutrophils # 1.7 Lymphocytes # 1.7 Monocytes # 0.8 Eosinophils # 0.1 Basophils # 0.1 Nucleated Red Blood 0.0 Cells # Sodium Level 141 Potassium Level 3.4 L Chloride Level 109 Carbon Dioxide Level 26 Anion Gap 6 Blood Urea Nitrogen 13 Creatinine 0.66 Est Glomerular Filtrat > 60 Rate mL/min Glucose Level 196 Calcium Level 9.4 Phosphorus Level 3.7 Magnesium Level 1.4 L Test 04/11/19 08:29 04/11/19 12:15 Bedside Glucose 165 209 Medications Medication Current Medications IV Flush (NS 3 ml) 3 ml PER PROTOCOL IV ; Start 04/06/19 at 05:30 Lorazepam (Ativan) 2 mg Q10M PRN IV seizure Last administered on 04/07/19at 03:19; Admin Dose 2 MG; Start 04/06/19 at 05:30 Ondansetron HCl (Zofran Inj) 4 mg Q6H PRN IV NAUSEA/VOMITING; Start 04/06/19 at 05:30 Heparin Sodium (Porcine) (Heparin (5000 Units/1ml)) 5,000 unit Q12 SC Last administered on 04/11/19at 08:28; Admin Dose 5,000 UNIT; Start 04/06/19 at 09:00 Diagnostic Test (Pha) (Accu-Chek) 1 ea 02 XX Last administered on 04/11/19at 02:14; Admin Dose 1 EA; Start 04/07/19 at 02:00 Miscellaneous Information 1 ea NOTE XX ; Start 04/06/19 at 06:00 Glucose (Glutose) 15 gm Q15M PRN PO DECREASED GLUCOSE; Start 04/06/19 at 06:00 Glucose (Glutose) 22.5 gm Q15M PRN PO DECREASED GLUCOSE; Start 04/06/19 at 06:00 Dextrose (D50w Syringe) 25 ml Q15M PRN IV DECREASED GLUCOSE; Start 04/06/19 at 06:00 Dextrose (D50w Syringe) 50 ml Q15M PRN IV DECREASED GLUCOSE; Start 04/06/19 at 06:00 Glucagon (Glucagen) 1 mg Q15M PRN IM DECREASED GLUCOSE; Start 04/06/19 at 06:00 Glucose (Glutose) 15 gm Q15M PRN BUCCAL DECREASED GLUCOSE; Start 04/06/19 at 06:00 Acetaminophen (Tylenol Tab) 500 mg Q6H PRN PO MILD PAIN(1-3)OR ELEVATED TEMP Last administered on 04/06/19at 10:14; Admin Dose 500 MG; Start 04/06/19 at 09:00 Hydralazine HCl (Apresoline) 10 mg Q6H PRN IV SBP>160 Last administered on at 13:55; Admin Dose 10 MG; Start 04/06/19 at 09:00 Benazepril HCl (Lotensin) 10 mg DAILY PO Last administered on 04/11/19at 08:42; Admin Dose 10 MG; Start 04/07/19 at 09:00 Insulin Glargine (Lantus) 11 units DAILY@2000 SC Last administered on 04/10/19at 21:06; Admin Dose 11 UNITS; Start 04/06/19 at 20:00 Insulin Aspart (Novolog Insulin Pen) 4 unit WITH MEALS SC Last administered on 04/11/19at 12:31; Admin Dose 4 UNIT; Start 04/06/19 at 12:00 Insulin Aspart (Novolog Insulin Pen) NOVOLOG *MILD* ALGORITHM WITH MEALS BEDTIME SC Last administered on 04/11/19at 12:31; Admin Dose 2 UNIT; Start 04/06/19 at 12:00 Lorazepam (Ativan) 1 mg Q2H PRN IV anxiety; Start 04/07/19 at 03:30 Lorazepam (Ativan) 2 mg Q2H PRN IV SEVERE AGITATION Last administered on 04/08/19at 03:28; Admin Dose 2 MG; Start 04/07/19 at 03:30 Fish Oil (Fish Oil) 2,000 mg BID PO Last administered on 04/11/19 08:42; Admin Dose 2,000 MG; Start 04/09/19 at 21:00 Chlordiazepoxide (Librium) 10 mg TID PO Last administered on 04/11/19at 12:32; Admin Dose 10 MG; Start 04/09/19 at 21:00 Vitamin B Complex/ Vitamin C (Berocca) 1 cap DAILY PO Last administered on 04/11/19 08:42; Admin Dose 1 CAP; Start 04/10/19 at 16:00 Metoprolol Tartrate (Lopressor) 25 mg BID PO Last administered on 04/11/19at 08:44; Admin Dose 25 MG; Start 04/10/19 at 21:00 AIME DUARTE NP Apr 11, 2019 16:25
[2019-04-11 20:00] VITALS: BP 166/103; PULSE 78; RESP 19
[2019-04-11] MEDS ORDERED: INSULIN GLARGINE [LANTus] (100 UNITS/ML) SYG SC SCH (20:00)
[2019-04-11 21:36] VITALS: BP 148/98; PULSE 74
[2019-04-12 01:00] VITALS: BP 163/96; PULSE 65; RESP 17
[2019-04-12] MEDS: ACCU-CHEK XX SCH (01:10)
[2019-04-12] MEDS: hydrALAzine 20 MG INJ IV PRN (01:23)
[2019-04-12 04:29] VITALS: BP 138/88; PULSE 76
[2019-04-12 07:53] VITALS: BP 135/87; PULSE 82; RESP 17
[2019-04-12] MEDS: INSULIN ASPART [NOVOLOG] 3 ML PEN SC SCH ×6 (08:00→17:20)
[2019-04-12] MEDS: FISH OIL 1,000 MG CAP PO SCH (08:42)
[2019-04-12] MEDS: CHLORDIAZEPOXIDE 5 MG CAP PO SCH ×2 (08:42→12:27)
[2019-04-12] MEDS: BENAZEPRIL 10 MG TAB PO SCH (08:43)
[2019-04-12] MEDS: VITAMIN B COMPLEX/VIT C CAP PO SCH (08:43)
[2019-04-12] MEDS: HEPARIN 5,000 UNIT/1 ML VIAL SC SCH (08:44)
[2019-04-12] MEDS: METOPROLOL 25 MG TAB PO SCH (08:44)
[2019-04-12] MEDS ORDERED: MAGNESIUM SULFATE 4 GM/100 ML 100 ML IVPB ONE (12:00)
[2019-04-12] MEDS ORDERED: POTASSIUM CHLORIDE (SR) 10 MEQ TAB PO ONE (12:00)
--- NOTE | 2019-04-12 12:56 | PN ---
Assessment/Plan VTE Prophylaxis Risk score (from Nsg)>0 risk: 2 Lines/Catheters Urinary Cath still in place: No Assessment/Plan Result Diagram: 04/12/1952904/12/19 0530 Results 24hrs Exam/Review of Systems Exam Vitals Results Results 24hrs Medications Medication AIME DUARTE NP Apr 12, 2019 12:55
[2019-04-12] MEDS ORDERED: METO-448 PO (13:16)
[2019-04-12] MEDS ORDERED: INSU100I33 SC (13:16)
[2019-04-12] MEDS ORDERED: OMEG100024 PO (13:16)
[2019-04-12] MEDS ORDERED: VITBC PO (13:16)
[2019-04-12] MEDS ORDERED: METF-849 PO (13:16)
--- NOTE | 2019-04-12 13:19 | PDOCDIS ---
Discharge Instructions CONDITION [id number] Patient Condition: [id number] Stable HOME CARE INSTRUCTIONS: [id number] Diet Instructions: [id number] Low Fat /Cholesterol [id number] Special Diet: Whroh1d Low carbohydrate FOLLOW UP/APPOINTMENTS Follow-up Plan Ivan Orona MD Specialty: Internal Medicine Office Address: [address] [place], [place] [id number] Office OTHER ORDERS: Other Orders: 1. Resume home medications. 2. Take a low-cholesterol, low carbohydrate diet. 3. Abstain from using alcohol. 4. Resume activities as tolerated. 5. Please follow-up with your primary care physician in 1 week. If you do not have a primary care physician, please call Dr. Ivan Orona's office. AIME DUARTE NP Apr 12, 2019 13:19
--- NOTE | 2019-04-12 13:24 | DS ---
Date/Time of Note Date/Time of Note DATE: 04/12/19 TIME: 13:21 Discharge Summary Admission/Discharge Info Admit Date/Time April 06, 2019 at 03:59 Discharge Date/Time Discharge Diagnosis 1. Acute encephalopathy. 2. Alcohol withdrawal seizures. 3. Delirium tremens. 4. Diabetes mellitus type 2. Hemoglobin A1c 12.1. 5. Transaminitis without hyperbilirubinemia. 6. Dyslipidemia. 7. Hypertension. Patient Condition: Stable Procedures Brain CT IMPRESSION: 1. No intracranial hemorrhage, mass effect or midline shift. Liver US IMPRESSION: Fatty infiltration of the liver Hx of Present Illness This is a 52-year-old male with comorbidities including diabetes mellitus type 2, hypertension, dyslipidemia, and alcohol abuse who was brought in by paramedics from home for hypoglycemia. The patient was admitted to telemetry floor and the patient had a seizure in the telemetry floor. Hospital Course The patient had underlying acute encephalopathy secondary to toxic metabolic from underlying alcohol withdrawal and hypoglycemia. The patient underwent a CT scan of the brain that was negative for any acute intracranial abnormalities. The patient had seizures that was witnessed on telemetry floor that was concluded to be from underlying alcohol withdrawal. The patient had active delirium tremens that was managed with IV benzodiazepines, antipsychotics, and mechanical restraints. The patient had a one-to-one sitter for a few days and the patient was maintained on seizure precautions. The patient was maintained on Librium taper with improvement in the patient's a DTs. The patient was continued on thiamine. Once the patient's tachycardia had resolved, the patient was transferred to medical surgical floor. The patient was also initiated on beta-eric therapy for his underlying blood pressure and also to check his underlying tachycardia. The patient's chronic problems include diabetes mellitus type 2. The patient was noticed to have a hemoglobin A1c of 12.1. The patient was maintained on sliding scale insulin along with pre-meal insulin and basal insulin. The patient's insulin dosing was adjusted multiple times to obtain optimal blood sugar control. The patient was noticed to have transaminitis without hyperbilirubinemia. This was most probably secondary to his underlying alcohol abuse. The patient's statins were withheld during the hospital course. The patient's liver ultrasound was showing fatty metamorphosis of liver. The patient's hepatitis panel was negative. The patient was started on omega-3 fatty acid for his underlying dyslipidemia. The patient has underlying hypertension and the patient was maintained on antihypertensives. The patient was on ACEi at home which was continued. The patient was also started on beta-eric therapy and the dose was titrated up to obtain optimal blood pressure control. The patient was seen and evaluated by physical therapy. The patient had PT evaluation because of his underlying deconditioning. However, towards the end of the patient's hospital stay he recovered well and was able to walk without any significant gait disturbances. Patient was also evaluated by social psychologist for his underlying alcoholism and the patient has good support at home and the patient verbalized willing to use social support from family and to reach out to the resources in the community. The patient had a prolonged hospital course because of the slow improvement the patient's clinical condition. The patient is medically stable to be discharged home. Discharge Instructions 1. Resume home medications. 2. Take a low-cholesterol, low carbohydrate diet. 3. Abstain from using alcohol. 4. Resume activities as tolerated. 5. Please follow-up with your primary care physician in 1 week. If you do not have a primary care physician, please call Dr. Ivan Orona's office. The patient verbalized understanding of his discharge instructions. The patient was seen in collaboration with Dr. Gil. Home Meds Active Scripts Metformin* (Glucophage*) 500 Mg Tab, 500 MG PO BID WITH MEALS, #60 TAB Prov:AIME DUARTE NP 04/12/19 Vitamin B Complex/Vit C (Total B with C) 1 Each Tablet, 1 CAP PO DAILY, #30 TAB Prov:AIME DUARTE NP 04/12/19 Insulin Glargine,Hum.rec.anlog (Basaglar Kwikpen U-100) 100 Unit/1 Ml Insuln. pen, 12 UNIT SC QHS, #1 EA Prov:AIME DUARTE NP 04/12/19 [place]-3/Dha/Epa/Fish Oil (Fish Oil 1,000 mg Softgel) 1,000 Mg Capsule, 2000 MG PO BID, #120 CAP 2 tabs (2000 mg) po BID Prov:AIME DUARTE NP 04/12/19 Metoprolol Tartrate* (Lopressor*) 25 Mg Tab, 25 MG PO BID, #60 TAB Prov:AIME DUARTE NP 04/12/19 Reported Medications Benazepril Hcl* (Benazepril Hcl*) 10 Mg Tablet, 10 MG PO DAILY, #30 TAB 04/26/18 Discontinued Reported Medications Atorvastatin* (Atorvastatin*) 80 Mg Tablet, 80 MG PO QHS, #30 TAB 04/26/18 Metformin* (Glucophage*) 1,000 Mg Tablet, 1000 MG PO WITH BREAKFAST, #30 TAB 04/26/18 Discontinued Scripts Chlordiazepoxide* (Chlordiazepoxide*) 25 Mg Capsule, 25 MG PO BID PRN for CONTROL WITHDRAWAL SYMPTOMS, #10 CAP Prov:BATOOL RAMOS MD 04/26/18 Follow-up Plan Ivan Orona MD Specialty: Internal Medicine Office Address: [address] [place] [address] [place], [place] [id number] Office Primary Care Provider Care Physician No Primary Time spent on discharge: > 30 minutes Pending Labs Laboratory Tests Test 04/11/19 17:14 04/11/19 21:33 04/12/19 01:08 04/12/19 05:30 Bedside 223 193 172 Glucose mg/dL (70-220) mg/dL (70-220) mg/dL (70-220) White Blood 4.3 Count 10^3/ul (4.8-1 0.8) Red Blood 3.82 Count 10^6/ul (4.70- 6.10) Hemoglobin 11.3 g/dl (14.0-18. 0) Hematocrit 33.5 % (42.0-52.0) Mean 87.7 Corpuscular fl (82.0-101.0 Volume ) Mean 29.6 Corpuscular pg (29.0-33.0) Hemoglobin Mean 33.7 Corpuscular g/dl (32.0-37. Hemoglobin Conc 0) ent Red Cell 14.8 Distribution % (11.5-14.5) Width Platelet Count 194 10^3/UL (140-4 15) Mean Platelet 10.5 Volume fl (7.4-10.4) Immature 0.200 Granulocytes % % (0.001-0.429 ) Neutrophils % 39.9 % (39.0-77.0) Lymphocytes % 39.6 % (15.0-51.0) Monocytes % 15.7 % (0.0-11.0) Eosinophils % 2.5 % (0.0-7.0) Basophils % 2.1 % (0.0-2.0) Nucleated Red 0.0 Blood Cells % /100WBC (0.0-0 .0) Immature 0.010 Granulocytes # 10^3/ul (0.0-0 .031) Neutrophils # 1.7 10^3/ul (1.6-7 .5) Lymphocytes # 1.7 10^3/ul (0.8-2 .9) Monocytes # 0.7 10^3/ul (0.3-0 .9) Eosinophils # 0.1 10^3/ul (0.0-0 .5) Basophils # 0.1 10^3/ul (0.0-0 .1) Nucleated Red 0.0 Blood Cells # 10^3/ul (0.0-0 .0) Sodium Level 141 mmol/L (135-14 4) Potassium 3.5 Level mmol/L (3.5-5. 1) Chloride Level 107 mmol/L (97-110 ) Carbon Dioxide 25 Level mmol/L (21-31) Anion Gap 9 (5-13) Blood Urea 15 Nitrogen mg/dl (7-20) Creatinine 0.53 mg/dl (0.61-1. 24) Est Glomerular > 60 Filtrat mL/min (>60) Rate mL/min Glucose Level 177 mg/dl (70-220) Calcium Level 9.9 mg/dl (8.4-10. 2) Phosphorus 3.9 Level mg/dl (2.5-4.9 ) Magnesium 1.2 Level mg/dl (1.7-2.5 ) Test 04/12/19 08:11 04/12/19 12:25 Bedside 136 245 Glucose mg/dL (70-220) mg/dL (70-220) AIME DUARTE NP Apr 12, 2019 13:24
[2019-04-12 14:31] VITALS: BP 133/81; PULSE 71; RESP 18
[2019-04-12] MEDS ORDERED: metFORMIN 500 MG TAB PO SCH (18:00)
== END 2019-04-12 18:35 | disposition home or self-care (01) | DRG 638 ==
LOC: E/R 03:34 → 6WM 03:59 → 5EC 05:00
PROVIDERS: ADMIT Internal Medicine; ATTEND Internal Medicine
DX: E11.649 Type 2 diabetes mellitus with hypoglycemia without coma (principal); F10.231 Alcohol dependence with withdrawal delirium; G92 Toxic encephalopathy; E78.5 Hyperlipidemia, unspecified; I10 Essential (primary) hypertension; Z78.1 Physical restraint status; Z79.84 Long term (current) use of oral hypoglycemic drugs; R74.0 Nonspecific elevation of levels of transaminase and lactic acid dehydrogenase [LDH]
CPT/HCPCS: 36415; 70450; 76705; 80048; 80053; 80061; 80076; 80307; 81001; 82962; 83036; 83735; 84100; 84132; 85025; 86703; 86706; 86803; 87340; 93005; 97110; 97116; 97162; 97530; J0360; J1630; J1644; J1815; J1953; J2060; J3411; J3475; J3480; J7030; J7050